=== PATIENT | male | born 1970 | race Two or more races ===

== ENCOUNTER 2025-01-01 11:49 | Emergency (ER) | payer MEDICAID, SELFPAY ==
[2025-01-01 11:51] VITALS: BMI 30.8
[2025-01-01 12:10] VITALS: BP 177/90; PULSE 74; RESP 18; TEMP 37.1; O2SAT 96; BMI 28.4
--- NOTE | 2025-01-01 12:27 | XR_ITS ---
Examination:Left hip AP, lateral, AP pelvis 3 views Technique: Hip AP lateral, AP pelvis, 3 views Exam date and time:January 01, 2025 1248 hours INDICATIONS: Low back pain 15 days radiating to the hips FINDINGS: Mild bilateral hip osteoarthritis No hip or pelvic fracture IMPRESSION: Mild bilateral hip osteoarthritis.
[2025-01-01] MEDS: KETOROLAC INJ 30 MG/ML VIAL IM (12:40)
--- NOTE | 2025-01-01 13:38 | EDNOTE_ITS ---
<Statement entered by Leanne Mcguire MD - 01/12/25 06:18> As co-signing physician, I was present and available for consult prn. I concur with the plan and care as documented by the midlevel provider. ED General RME/HPI General Chief complaint: General Adult/Misc Complain Stated complaint: L HIP PAIN THAT RADIATES TO LLE X2 WEEKS Time Seen by Provider: 01/01/25 11:58 Arrival date/time: 01/01/25 11:49 54-year-old male presents to the emergency department today from plaint of left hip pain radiating down the left leg patient report symptoms ongoing for last couple of weeks Limitations: no limitations Related Data Previous Rx's ?Medication ?Instructions ?Recorded cyclobenzaprine 10 mg tablet 10 mg PO TID PRN muscle s pasm 10 01/01/25 days #30 tab-caps meloxicam 7.5 mg tablet 7.5 mg PO QDAY 7 days #7 tab s 01/01/25 Allergies Allergy/AdvReac Type Severity Reaction Status Date / Time Penicillins Allergy Verified 01/01/25 12:50 Review of Systems Review of Systems Systems Reviewed: All systems reviewed, normal except as documented Constitutional Constitutional: Reports system reviewed and no additional complaints, except as documented, Denies fever(s) and Denies headache(s) Eyes Eyes: Reports system reviewed and no additional complaints, except as documented and Denies blurry vision ENT Ears, Nose, Mouth, and Throat: Reports system reviewed and no additional complaints, except as documented, Denies headache(s), Denies nasal congestion and Denies nasal discharge Cardiovascular Cardiovascular: Reports system reviewed and no additional complaints, except as documented, Denies chest pain and Denies dyspnea Respiratory Respiratory: Reports system reviewed and no additional complaints, except as documented, Denies chest congestion, Denies cough and Denies dyspnea Gastrointestinal Gastrointestinal: Reports system reviewed and no additional complaints, except as documented and Denies abdominal pain Musculoskeletal Musculoskeletal: Reports system reviewed and no additional complaints, except as documented, Denies abnormal gait, Reports arthralgias, Denies deformity, Denies joint swelling, Denies numbness, Reports radiating pain into limb, Reports stiffness and Denies tingling Integumentary/Breasts Skin/Breast: Reports system reviewed and no additional complaints, except as documented and Denies rash Neurologic Neurologic: Reports system reviewed and no additional complaints, except as documented, Reports as per HPI, Denies abnormal gait, Denies headache(s), Denies numbness and Denies tingling Past Medical History Social History SMOKING STATUS: Current every day smoker ED Exam General Limitations: Present no limitations General appearance: Present alert and in no apparent distress Head Head exam: Present atraumatic, normocephalic and normal inspection Eye Eye exam: Present normal appearance, PERRL and EOMI ENT ENT exam: Present normal exam, normal oropharynx and mucous membranes moist Neck Neck exam: Present normal inspection, full ROM and trachea midline Chest Chest inspection: Present normal inspection and symmetric chest wall rise Respiratory Respiratory exam: Present normal lung sounds bilaterally Cardiovascular Cardiovascular exam: Present regular rate, normal rhythm and normal heart sounds Abdominal Exam Abdominal exam: Present soft and normal bowel sounds; Absent distention, tenderness, rebound or rigidity Extremities Exam Extremities exam: Present normal inspection, full ROM, tenderness (Left hip pain) and normal capillary refill Back Exam Back exam: Present normal inspection and full ROM Neurological Exam Neurological exam: Present alert, oriented X3, CN II-XII intact, normal gait and reflexes normal; Absent motor sensory deficit Psychiatric Psychiatric exam: Present normal affect and normal mood Skin Skin exam: Present warm, dry, intact and normal color Course Quality Measures none Orders Category Date Time Status XR hip LT w pelvis 2-3V Stat Exams 01/01/25 12:27 Completed Ketorolac Inj [Toradol Inj] Med 01/01/25 12:27 Discontinued 30 mg IM X1 ONE Vital Signs Vital signs: Vital Signs Temperature 98.8 F 01/01/25 12:10 Pulse Rate 74 01/01/25 12:10 Respiratory Rate 18 01/01/25 12:10 Blood Pressure 177/90 H 01/01/25 12:10 Pulse Oximetry (%) 96 01/01/25 12:10 Oxygen Delivery Method Room Air 01/01/25 12:10 O2 saturation 96% on room air within normal limits Discharge Plan Plan Patient Disposition: HOME (Self Care) Discharge Disposition comment: Stable Prescriptions/Referrals Prescriptions/Med Rec: New cyclobenzaprine 10 mg tablet 10 mg PO TID PRN (Reason: muscle spasm) 10 Days Qty: 30 0RF meloxicam 7.5 mg tablet 7.5 mg PO QDAY 7 Days Qty: 7 0RF Referrals: No Primary/Family,Physician [Primary Care Provider] - 01/04/25 Problem List Clinical Impression: Osteoarthritis of left hip Patient/Caregiver Discharge Instructions Education Materials: ED Osteoarthritis Additional Instructions: Please follow up with your primary care doctor in the next 24-48hrs for any worsening symptoms return here immediately Print Language: Dutch Stand Alone Forms: Anneliese Saleh Info., Patient Portal Info Letter PA/YAHIR Supervising Physician PA/TRANSLATOR INTERPRETER Supervising Physician: Dr. Mcguire MDM Narrative MDM hospital course (for use when minimal MDM required): 54-year-old male presents to the emergency department today from plaint of left hip pain radiating down the left leg patient report symptoms ongoing for last couple of weeks Patient reports no saddle anesthesia no loss of bowel or bladder patient walks with steady gait Imaging obtained consistent with arthritis Patient given Toradol for pain which improved his symptoms Patient discharged home in no distress to follow-up with primary care doctor in the next 24 to 48 hours and for any worsening symptoms to return to the ER immediately Clinical Information Provided by: none Medical Records reviewed None Meds/Rx considered, not ordered describe: Given Labs/Rad/Tests considered, not ordered Describe: Obtained EKG EKG not done Labs Labs: none Imaging Imaging interpretation: Personal Interpretations Imaging Interpretation(s): Reviewed by me Medication Administration(s) Medication Administration History Discontinued Medications Ketorolac Tromethamine (Ketorolac Inj 30 Mg/Ml Vial) 30 mg IM X1 ONE Stop: 01/01/25 12:28 Last Admin: 01/01/25 12:40 Dose: 30 mg Documented By: OA Given Diagnosis Differential Diagnosis ED Complaint MDM: Hip sprain, hip strain, arthritis, sciatica
== END 2025-01-01 14:14 | disposition home or self-care (01) ==
PROVIDERS: Emergency Provider Emergency Medicine
DX: M16.12 Unilateral primary osteoarthritis, left hip (principal)
CPT/HCPCS: 73502; 96372; 99283; J1885

== ENCOUNTER 2025-02-09 17:41 | Emergency (ER) | payer MEDICAID, SELFPAY ==
[2025-02-09 18:12] VITALS: BP 163/91; PULSE 75; RESP 19; TEMP 37.4; O2SAT 95; BMI 26.0
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
== END 2025-02-09 19:55 | disposition home or self-care (01) ==
PROVIDERS: Emergency Provider Emergency Medicine
DX: S19.9XXA Unspecified injury of neck, initial encounter (principal); S09.90XA Unspecified injury of head, initial encounter; V89.2XXA Person injured in unspecified motor-vehicle accident, traffic, initial encounter
CPT/HCPCS: 70450; 72125; 87400; 87811; 99284

== ENCOUNTER 2025-08-06 07:25 | Inpatient (IN) | payer MEDICAID, SELFPAY ==
[2025-08-06] VITALS (10 sets, daily range): BP systolic 111–138; BP diastolic 84–107; PULSE 76–130; RESP 16–20; TEMP 36.6–37.2; O2SAT 93–96; BMI 30.7
--- NOTE | 2025-08-06 07:49 | EKG_ITS ---
[facility] Test Date: 2025-08-06 Pat Name: BRIGITTE MICHELE Department: Room: - Gender: Male Element Burner: : 1970 Requested By: Sandy Ramachandran Order Number: [id number] Reading MD: Sandy Ramachandran Measurements Intervals [place] Rate: 115 P: [place]: QRS: -23 QRSD: 93 T: 30 QT: 339 QTc: 471 Interpretive Statements ATRIAL FIBRILLATION WITH RAPID VENTRICULAR RESPONSE BORDERLINE LEFT AXIS DEVIATION [QRS AXIS < -20] NONSPECIFIC T-WAVE ABNORMALITY ABNORMAL RHYTHM ECG No previous ECG available for comparison /[id number]/[email or web address]/[id number].pdf
--- NOTE | 2025-08-06 08:03 | XR_ITS ---
EXAMINATION: PA chest single view TECHNIQUE: Upright PA chest single view Date and time: August 06, 2025, 0843 hours INDICATIONS: Chest pain difficulty breathing today FINDINGS: Early heart failure Mild enlargement cardiac contour. Prominent vascular congestion. Early septal edema at the lung bases with small left pleural effusion IMPRESSION: Early heart failure
--- NOTE | 2025-08-06 08:04 | PD.EDRME ---
Rapid Medical Screening Exam E Arrival date/time: 08/06/25 07:25 This is a 54-year-old male that comes into the emergency room with complaints of chest pain and shortness of breath. Patient states symptoms started last night. Patient reports the pain started mid chest and kind of radiates to his left chest. Patient denies any nausea vomiting. Patient reports that he feels like he cannot catch his breath. 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 Patient states that he does not smoke or do drugs. Patient states he also does not drink alcohol anymore. I have greeted and performed a focused initial assessment of this patient. Initial appropriate labs ordered at this time. A comprehensive ED assessment and evaluation of the patient and analysis of all test and completion of medical decision making process will be conducted by additional ED provider. Chief Complaint: Chest Pain Time Seen by Provider: 08/06/25 07:45 Vital signs: Vital Signs Temperature 98.1 F 08/06/25 08:00 Pulse Rate 108 H 08/06/25 08:00 Respiratory Rate 16 08/06/25 08:00 Blood Pressure 138/102 H 08/06/25 08:00 Pulse Oximetry (%) 95 08/06/25 08:00 Oxygen Delivery Method Room Air 08/06/25 08:00 Exam: Awake alert, breathing even and unlabored, skin warm and dry Clinical Impression: Chest pain
[2025-08-06 08:34] LABS: Basophils # (Auto) 0.1 Thou/mm3 (0.0-0.2); Basophils % (Auto) 1 % (0-2.5); Eosinophils # (Auto) 1.4 Thou/mm3 (0.0-0.5); Eosinophils % (Auto) 16 % (0-10); Hematocrit 42.2 % (41.0-53.0); Hemoglobin 13.9 g/dL (13.5-16.0); Immature Granulocytes Auto 0.02 Thou/mm3 (0.00-0.00); Lymphocytes # (Auto) 1.7 Thou/mm3 (1.0-4.8); Lymphocytes % (Auto) 19 % (10-50); Mean Corpuscular HGB Conc 32.9 g/dl (31.0-37.0); Mean Corpuscular Hemoglobin 27.7 pg (25.0-35.0); Mean Corpuscular Volume 84 fL (80-100); Monocytes # (Auto) 0.7 Thou/mm3 (0.0-0.8); Monocytes % (Auto) 8 % (0-12); Neutrophils # (Auto) 4.9 Thou/mm3 (1.8-7.7); Neutrophils % (Auto) 56 % (37-80); Nucleated Red Blood Cell # 0.00 Thou/mm3 (0.00-0.00); Nucleated Red Blood Cell % 0 /100 WBC (0); Platelet Count 192 Thou/mm3 (140-440); RDW Standard Deviation 41.1 fL (35.1-43.9); Red Blood Count 5.02 Miln/mm3 (4.50-5.90); White Blood Count 8.7 Thou/mm3 (3.8-10.6)
[2025-08-06 08:48] LABS: B-Type Natriuretic Peptide 451 pg/mL (0-100)
[2025-08-06 08:51] LABS: Alanine Aminotransferase 97 U/L (10-49); Albumin, Serum 4.1 gm/dL (3.5-5.0); Albumin/Globulin Ratio 1.6 (1.2-2.2); Alkaline Phosphatase 57 U/L (46-116); Anion Gap 10 (7-16); Aspartate Amino Transferase 52 U/L (0-34); BUN/Creatinine Ratio 16 Ratio (12-20); Bilirubin,Total 0.6 mg/dL (0.3-1.2); Blood Urea Nitrogen 19 mg/dL (9-23); Calcium 9.3 mg/dL (8.3-10.6); Calcium (Corrected) 9.3 mg/dL (8.5-10.1); Carbon Dioxide 25.7 mMol/L (20.0-31.0); Chloride 108 mMol/L (98-107); Creatinine (Component) 1.2 mg/dL (0.6-1.3); Estimated Creatinine Clearance 83.2 mL/min (>60); Globulin 2.6 gm/dL (2.3-3.5); Glucose 113 mg/dL (74-106); Osmolality,Calculated 290 (275-295); Potassium 4.4 mMol/L (3.4-5.1); Sodium 144 mMol/L (136-145); Total Protein 6.7 gm/dL (5.7-8.2); Troponin I 0.021 ng/mL (0.0-0.045); eGFR > 60 See Note
--- NOTE | 2025-08-06 10:08 | PD.EDCHEST ---
ED Chest Pain RME/HPI General Chief Complaint: Chest Pain Stated Complaint: C/P SINCE LAST NIGHT, SOB, HAS HAD COUGH Time Seen by Provider: 08/06/25 07:45 Arrival date/time: 08/06/25 07:25 RME / HPI RME / HPI narrative: 08/06/25 07:25 This is a 54-year-old male that comes into the emergency room with complaints of chest pain and shortness of breath. Patient states symptoms started last night. Patient reports the pain started mid chest and kind of radiates to his left chest. Patient denies any nausea vomiting. Patient reports that he feels like he cannot catch his breath. 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 Patient states that he does not smoke or do drugs. Patient states he also does not drink alcohol anymore. I have greeted and performed a focused initial assessment of this patient. Initial appropriate labs ordered at this time. A comprehensive ED assessment and evaluation of the patient and analysis of all test and completion of medical decision making process will be conducted by additional ED provider. DR. SALINAS MAIN ED EVALUATION 54 year old male with no known medical history presents to the ED for evaluation of shortness of breath and chest pain that began around 8:00 PM while lying in bed. Describes the chest pain as an aching sensation, located in the substernal, left chest, and upper epigastric areas, rating 9/10 in severity. Pain aggravated by deep breaths. Associated with difficulty sleeping due to a choking sensation, palpitations, nausea, cough, and sore throat. Denies any prior episodes of similar symptoms and notes no other associated complaints. He states that he drank a Picot at 5:00 AM today, but this did not alleviate his symptoms. Social history: Drank 1-2 beers 3 days ago and states he drinks once in a while . Exam: Awake alert, breathing even and unlabored, skin warm and dry Impression: Chest pain Related Data Allergies Allergy/AdvReac Type Severity Reaction Status Date / Time Penicillins Allergy Verified 08/06/25 07:26 Review of Systems Review of Systems Systems Reviewed: All systems reviewed, normal except as documented Past Medical History Past Medical History CARDIAC: Negative Congestive Heart Failure RESPIRATORY: Negative Chronic Obstructive Pulmonary Disease (COPD) GENITOURINARY: Negative Renal Disease ENDOCRINE: Negative Diabetes Mellitus Type 1 or Diabetes Mellitus Type 2 Social History SMOKING STATUS: Never smoker ED Exam Narrative Physical exam: Constitutional: Awake, alert, nontoxic, no acute distress HEENT: Normocephalic, atraumatic, extraocular movements intact. Neck: Supple CV: Tachycardic, irregularly irregular rhythm, no murmurs/rubs/gallops Chest: Tenderness to the anterior chest wall Lungs: Clear to auscultation BL, no respiratory distress. Abd: Soft, pain to the upper abdomen worse to the epigastric region, ND, no HSM noted to palpation Extremities: No deformities, no edema noted Neuro: AAOx3, CN 2-12 GIBL, no acute neuro deficit noted. Skin: Warm, dry, intact Course Course Course Narrative: 1035h: I spoke with hospitalist team for admission. Discussed patients PMHx, HPI, ED course, exam findings, labs, and radiology results. Quality Measures none Orders Category Date Time Status COVID-19 Screening Questionnaire NOW Care 08/06/25 10:35 Active Decision to Admit X1 Care 08/06/25 10:35 Completed EKG (ED ONLY) *Do not use* NOW Care 08/06/25 07:49 Completed EKG (ED Only) Stat Exams 08/06/25 07:49 Draft XR chest 1V Stat Exams 08/06/25 08:03 Completed BNP [B-Type Natriuretic Peptide] Stat Lab 08/06/25 08:14 Completed CBC Stat Lab 08/06/25 08:14 Completed Comprehensive Metabolic Panel Stat Lab 08/06/25 08:14 Completed Drug Screen,Urine Stat Lab 08/06/25 10:24 Completed Troponin I Stat Lab 08/06/25 08:14 Completed Urinalysis, C/S if Indicated Stat Lab 08/06/25 10:24 Completed Diltiazem Inj [Cardizem Inj] Med 08/06/25 10:18 Discontinued 20 mg IV X1 ONE Furosemide Inj [Lasix Inj] Med 08/06/25 10:29 Discontinued 40 mg IVP X1 ONE Ringers Lactated 1000 ml [Lactated Ringers] 1,000 ml Med 08/06/25 10:18 Discontinued IV 999 mls/hr Vital Signs Vital signs: Vital Signs Temperature 98.1 F 08/06/25 08:00 Pulse Rate 108 H 08/06/25 08:00 Respiratory Rate 16 08/06/25 08:00 Blood Pressure 138/102 H 08/06/25 08:00 Pulse Oximetry (%) 95 08/06/25 08:00 Oxygen Delivery Method Room Air 08/06/25 08:00 Pulse ox is 95% on room air which is adequate. Chest Pain MDM Narrative MDM Narrative:: Jeanne Dobbins am scribing for and in the presence of Dr. Salinas. Patient data External records reviewed:: [facility] previous records Clinical information provided by:: patient Social determinants that could affect healthcare access:: alcohol use Patient has the following chronic illnesses:: No known medical hx How is presenting disease/condition affected by chronic disease/condition?: no chronic disease Evaluation data The following diagnostics were reviewed and interpreted by me:: lab results, radiology exam(s) and EKG tracing(s) (EKG @ 0755h, interpreted by me, atrial fibrillation with RVR, rate 115, no STEMI. ) Lab and/or radiology exams considered but not ordered:: None Interpretation Summary: Ordering Physician: Sandy Ramachandran NP Date of Service: 08/06/25 Procedure(s): XR chest 1V Accession Number(s): [id number] cc: Faizan Sams MD; Sandy Ramachandran NP~ EXAMINATION: PA chest single view TECHNIQUE: Upright PA chest single view Date and time: August 06, 2025, 0843 hours INDICATIONS: Chest pain difficulty breathing today FINDINGS: Early heart failure Mild enlargement cardiac contour. Prominent vascular congestion. Early septal edema at the lung bases with small left pleural effusion IMPRESSION: Early heart failure Dictated By: Faizan Sams MD Signed By: <Electronically signed by Faizan Sams MD in OV> 08/06/25 0924 Medications / Prescriptions Medications or Prescriptions considered but not ordered:: None Medication administrations:: Medication Administration History Discontinued Medications Diltiazem HCl (Diltiazem Inj 5 Mg/Ml Vial 5 Ml) 20 mg IV X1 ONE Stop: 08/06/25 10:19 Last Admin: 08/06/25 10:44 Dose: 20 mg Documented By: TM Furosemide (Furosemide Inj 10 Mg/Ml 4ml Vial) 40 mg IVP X1 ONE Stop: 08/06/25 10:30 Last Admin: 08/06/25 10:50 Dose: 40 mg Documented By: TM Lactated Ringer's (Lactated Ringers) 1,000 mls @ 999 mls/hr IV .Q1H1M ONE Stop: 08/06/25 11:18 Last Infusion: 08/06/25 11:48 Dose: Infused Documented By: Admin: 08/06/25 10:47 Dose: 999 mls/hr Documented By: TM Magnesium Sulfate (Magnesium Sulfate Ivpb) 2 gm in 50 mls @ 25 mls/hr IV X1 ONE Stop: 08/06/25 14:50 Last Infusion: 08/06/25 15:13 Dose: Infused Documented By: Admin: 08/06/25 13:13 Dose: 25 mls/hr Documented By: TM Metoprolol Succinate (Metoprolol Succinate Xl 25 Mg Tabcr) 50 mg PO X1 ONE Stop: 08/06/25 13:23 Last Admin: 08/06/25 13:26 Dose: 50 mg Documented By: TM Pantoprazole Sodium (Pantoprazole Inj 40 Mg Vial) 40 mg IVP X1 ONE Stop: 08/06/25 13:06 Last Admin: 08/06/25 13:13 Dose: 40 mg Documented By: TM See above Consultations Consultation(s) initiated? (list below): Yes Consultation #1 (Physician, Specialty, Details): See above Diagnosis Most likely diagnosis given after review of the tests above:: Atrial fibrillation with RVR Admission Indicated Admission indicated?: indicated Admission Request Was there a request for admission?: Yes Admission Attestation Admission request attestation: Discussed case with [] from Hospitalist service regarding admission. Discussed patients ED course, exam findings, labs, and radiology results. The Hospitalist [agrees,declines] to accept the patient for admission. Disposition Plan Disposition Plan: Admit Discharge Plan Plan Patient Disposition: Admit Acute Care w/in Hospital Problem List Clinical Impression: Atrial fibrillation with RVR
[2025-08-06 10:35] LABS: Collection Type, Urine Voided; Squamous Epithelial Cell,Urine 0 /hpf (0-5)
[2025-08-06] MEDS: DILTIAZEM INJ 5 MG/ML VIAL 5 ML 20 MG IV (10:44)
[2025-08-06] MEDS: RINGERS LACTATED 1000 ML 1,000 ML 999 ML IV (10:47)
[2025-08-06] MEDS: FUROSEMIDE INJ 10 MG/ML 4ML VIAL 40 MG IVP ×2 (10:50→19:15)
[2025-08-06 10:51] LABS: Amphetamine/Methamp Scrn,U Negative (Negative); Barbiturate Screen,Urine Negative (Negative); Benzodiazepines Screen,Urine Negative (Negative); Benzoylecgonine Screen, Ur Negative (Negative); Fentanyl Screen,Urine Negative (Negative); Opiate Screen,Urine Negative (Negative); THC Screen,Urine Negative (Negative)
[2025-08-06 10:55] LABS: Bilirubin,Urine Negative (Negative); Blood,Urine Negative (Negative); Clarity,Urine Clear (Clear/Hazy); Color,Urine Yellow (Lt Yel-Yel); Culture Indicated,Urine Not Indicated; Glucose, Urine Negative (Negative); Ketones,Urine Negative (Negative); Leukocyte Esterase,Urine Negative (Negative); Nitrite,Urine Negative (Negative); PH,Urine 6.5 (5.0-7.0); Protein,Urine 1+ (Neg - Trace); RBC,Urine 6 /hpf (0-3); Specific Gravity,Urine 1.029 (1.001-1.035); Urobilinogen,Urine Negative mg/dL (0.0-1.0); WBC,Urine 1 /hpf (0-5)
--- NOTE | 2025-08-06 12:26 | ESCONSULT_ITS ---
HPI Data of Consult Requesting Physician: Kurtis Plaza MD Admitting Provider: Kurtis Plaza MD Attending Provider: Kurtis Plaza MD Primary Care Provider: Shaan Lloyd MD Consult Narrative History of present illness: Mr. Deleon is a 54-year-old male with past medical history of osteoarthritis and remote history of methamphetamine use who presented to [facility] [place] emergency department with a chief complaint of chest pain and shortness of breath. Patient reported that his symptoms started last night, retrosternal chest pain 9/10 radiating to the left and in the epigastric region associated with nausea, denies any vomiting/diaphoresis. Patient reported difficulty sleeping due to the chest pain also endorsed palpitations and difficulty breathing describes it as a choking sensation. Patient has not had any similar episodes in the past. Patient denies any past medical history of hypertension hyperlipidemia, Endorses history of methamphetamine use in the past, history of smoking and alcohol use around 2-3 beers once in a while, Patient is overweight, BMI 30.7 and has family history of heart disease reports in father and brother. Denies any history of hypertension, hyperlipidemia, diabetes mellitus, thyroid disorder. ED course: On presentation to ED blood pressure 138/102, heart rate 108, respirate rate 16, temp 98.1, O2 sat 95 on room air on presentation. Labs on presentation show WBC 8.7, hemoglobin 13.9, platelet count 192. Eosinophilia 16% noted. Coags INR 1.1, APTT 25.8, PT 11.5. CMP shows sodium 144, potassium 4.4, chloride 108, anion gap 10, BUN 19, creatinine 1.2, GFR greater than 60, A1c 5.9, magnesium 1.8, calcium 9.3, AST 52, ALT 97, bilirubin 0.6, troponin negative at 0.021 and repeat troponin negative at 0.20, BNP 451, albumin 4.1, triglyceride 89, cholesterol 173, LDL 116, HDL 39, TSH 1.02, free T4 1.33. Urinalysis shows 6 RBC, protein 1+ urine toxicology screen negative. EKG obtained in ER shows atrial fibrillation with rapid ventricular response rate 150, chest x-ray shows early heart failure with mild vascular congestion, septal edema with small left pleural effusion. Patient was given diltiazem 20 mg IV x 1, 1 L LR bolus and Lasix 40 mg x 1 in ED. PMH: Positive for osteoarthritis, methamphetamine use PSHx: Denies Allergies: Penicillin Social history: -Smoking: Positive smoking in the past, 20 pack years -Alcohol Use: Occasional alcohol use, 2-3 beer once in a while -Illicit Drug Use: History of methamphetamine use in the past -Occupation: Works at [employer] -Martial Status: Lives at [place] with Family History: Positive family history for heart disease in father and brother cc:: cc: Kurtis Plaza MD Review of Systems Review of Systems Systems Reviewed: All systems reviewed, normal except as documented Exam Vital Signs Temp Pulse Resp BP Pulse Ox O2 Del Method 97.9 F 83 20 111/84 96 Room Air 08/06/25 10:19 08/06/25 10:50 08/06/25 10:19 08/06/25 10:50 08/06/25 10:19 08/06/25 10:19 Narrative Exam Physical Exam General: Awake and in no acute distress. Conversational and non-toxic appearing. HEENT: Normocephalic, atraumatic, mucous membranes moist. Heart: Irregularly irregular rhythm rate 130s, no murmurs. Lungs: Some bibasilar crackles Abdomen: Soft, nondistended, nontender, positive bowel sounds. ?No guarding or rebound tenderness. Neurologic: Alert and oriented x3, no gross neurological deficit, and patient able to move all 4 extremities. Extremities: Trace bilateral lower extremity edema Skin: No rash or ecchymoses. Results Labs 08/08/25 05:15 08/08/25 05:15 Labs: Short CBC 08/06/25 Range/Units 08:14 WBC 8.7 (3.8-10.6) Thou/mm3 Hgb 13.9 (13.5-16.0) g/dL Hct 42.2 (41.0-53.0) % Plt Count 192 (140-440) Thou/mm3 BMP 08/06/25 08:14 Sodium 144 Potassium 4.4 Chloride 108 H Carbon Dioxide 25.7 BUN 19 Creatinine 1.2 Glucose 113 H Calcium 9.3 Cardiac Enzymes 08/06/25 Range/Units 08:14 Troponin I 0.021 (0.0-0.045) ng/mL Liver Function 08/06/25 Range/Units 08:14 Total Bilirubin 0.6 (0.3-1.2) mg/dL AST 52 H (0-34) U/L ALT 97 H (10-49) U/L Alkaline Phosphatase 57 (46-116) U/L Albumin 4.1 (3.5-5.0) gm/dL Urine 08/06/25 Range/Units 10:24 Urine Color Yellow (Lt Yel-Yel) Urine Clarity Clear (Clear/Hazy) Urine pH 6.5 (5.0-7.0) Ur Specific [place] 1.029 (1.001-1.035) Urine Protein 1+ A (Neg - Trace) Urine Glucose (UA) Negative (Negative) Quality Measures Quality Measures none Medications Home Medications and Allergies Home Medications ?Medication ?Instructions ?Recorded ?Confirmed ?Type No Known Home Medications 08/06/2507/19 History Allergies Allergy/AdvReac Type Severity Reaction Status Date / Time Penicillins Allergy Verified 08/06/25 07:26 Visit Medications Discontinued Medications Diltiazem HCl (Diltiazem Inj 5 Mg/Ml Vial 5 Ml) 20 mg IV X1 ONE Stop: 08/06/25 10:19 Last Admin: 08/06/25 10:44 Dose: 20 mg Furosemide (Furosemide Inj 10 Mg/Ml 4ml Vial) 40 mg IVP X1 ONE Stop: 08/06/25 10:30 Last Admin: 08/06/25 10:50 Dose: 40 mg Lactated Ringer's (Lactated Ringers) 1,000 mls @ 999 mls/hr IV .Q1H1M ONE Stop: 08/06/25 11:18 Last Admin: 08/06/25 10:47 Dose: 999 mls/hr Assessment & Plan Plan Assessment and plan: Summary: Mr. Deleon is a 54-year-old male with past medical history of osteoarthritis and remote history of methamphetamine use who presented to [facility] [place] emergency department with a chief complaint of chest pain and shortness of breath. Patient admitted for new onset atrial fibrillation RVR, monitoring for cardiac chest pain and new onset heart failure. #New onset atrial fibrillation with rapid ventricular response Patient presented with new onset chest pain which started overnight, EKG on presentation shows A-fib RVR, rate 150. Patient also endorsed palpitations and some shortness of breath. Patient was given diltiazem 20 mg IV x 1, given metoprolol succinate 50 mg p.o. x 1. [id number] score 2 points, anticoagulation recommended HAS-BLED score 1 point, risk of 1.02 bleeds per 100 patient years Recommendations: - Continue metoprolol succinate 50 mg daily - Start heparin drip, transition to Eliquis when no contraindications - Keep potassium greater than 4 and magnesium greater than 2 at all times - Continue telemetry monitoring #Acute decompensated heart failure #New onset right and left sided systolic and diastolic heart failure with reduced ejection fraction, EF 15 to 20% #Dilated cardiomyopathy #Moderate vascular congestion with small left pleural effusion Patient complaining of chest pain, shortness of breath, difficulty breathing. Trace bilateral lower extremity edema, minimal bibasilar crackles, chest x-ray shows moderate vascular congestion, small left-sided pleural effusion. Patient denies any history of heart failure. History of on and off alcohol use, reports drinking a lot in the past, continues to drink 2 3 beers occasionally, remote history of methamphetamine use. Drug screen negative for methamphetamine. BNP on presentation 451. Echocardiogram 08/06/2025 shows: 1. Dilated Cardiomyopathy. 2. Left ventricle size is mildly enlarged and systolic function is severely reduced. Estimated ejection fraction is 15-20%. There is indeterminate diastolic function. There is concentric remodeling noted. 3. Right ventricle chamber size is mildly enlarged and systolic function is mild to moderately reduced. Estimated RVSP is 33 mmHg. Mild pulmonary HTN. 4. There is mild aortic valve sclerosis. Mild MR,TR,PI and trace PI. 5. The left atrium is moderately enlarged . LA volume of 89ml. The right atrium is mildly enlarged. 6. Normal IVC with estimated RA pressure 3 mmHg. Recommendations: - Diuresis with Lasix 40 mg IV twice daily - Strict intake and output, daily weight, low-sodium diet, fluid restriction 1500 cc - Continue metoprolol succinate 50 mg daily, will need to introduce GDMT post diuresis, will consider starting patient on STEVE/ARB/ARNI and spironolactone as blood pressure tolerates. - Patient will need to follow-up outpatient closely for further workup. - Advised patient to refrain from alcohol and methamphetamine use - Will obtain iron panel, will consider IV iron replacement if low reserve #Cardiac chest pain Patient reports history of chest pain, 9/10 radiating to the left side in the epigastric region associated with nausea, at bedside currently complains of 3/10 chest pain. Patient reported that his chest pain woke him up from sleep and he was unable to go back to sleep and was associated with palpitations and difficulty breathing. EKG on presentation shows A-fib RVR, no acute ST-T changes, T wave inversion noted in V5 V6, flattening of T waves noted lead V1?V4. Troponin on presentation 0.021, repeat troponin negative less than 0.020 Hemoglobin A1c 5.9, TSH 1.02, free T4 1.33, cholesterol 173, LDL 116, HDL 39, triglyceride 89 CAD risk factors: Dyslipidemia LDL 116, HDL 39; alcohol use and history of methamphetamine use; BMI 30.7; history of smoking, 20 pack years; family history of heart disease and father and brother Recommendations: -Was given aspirin loading dose, continue aspirin 81 mg daily -Patient is on heparin drip due to elevated [id number] score of 2, continue -Will monitor for chest pain - Continue atorvastatin 40 mg at bedtime #Dyslipidemia cholesterol 173, LDL 116, HDL 39, triglyceride 89 - Continue atorvastatin 40 mg at bedtime #Transaminitis #Osteoarthritis Management per primary hospitalist team Thank you for the consult and allowing to participate in the care of the patient. Cardiology will continue to follow. Case discussed with Attending Physician Dr. Sudhir Zuniga MD Internal Medicine PGY-2 Disclaimer: This note was dictated by speech recognition. Minor errors in cena may be present due to voice recognition software. Attending Provider Attestation/Addendum I have personally seen and examined the patient separately on the above date of service and discussed the plan of care with the resident. I reviewed the resident Dr. Margarita Zuniga consultation progress note and agree with the resident findings and plan in the note above and have also edited the documentation to reflect my findings and plan. Sudhir Hollingsworth M.D. Interventional Cardiology
--- NOTE | 2025-08-06 12:50 | ECHO_ITS ---
Patient Info Name: Joey Deleon Age: 54 years : 1970 Gender: Male Ht: 178 cm Wt: 97 kg BSA: 2.22 m2 BP: 131 / 105 mmHg HR: 86 bpm Exam Date: 08/06/2025 2:56 PM Admit Date: 08/06/2025 Site: [facility] Room Number: ER Patient Status: I Exam Type: CA echo doppler complete [place]ountain Supervisor: Jami Giraldo Ordering Physician: Margarita Zuniga Study Info Indications Atrail Fib., Chest Pain - Primary Location: [id number] Left Ventricular Outflow Tract Name Value Normal LVOT 2D LVOT Diameter 2.6 cm LVOT Doppler LVOT Peak Velocity 63 cm/s LVOT Mean Gradient 1 mmHg LVOT VTI 11 cm LVOT VTI/AV VTI Ratio 0.5 LVOT Stroke Volume 60 ml Pulmonic Valve Name Value Normal PV Regurgitation Doppler KS Peak End Diastolic Velocity 149 cm/s Mitral Valve Name Value Normal MV Doppler MV Mean Gradient 3 mmHg MV PHT 29 ms MV Area (PHT) 7.7 cm2 4.0-5.0 MV Area (Cont Eq VTI) 2.3 cm2 MV Annular TDI MV Septal e' Velocity 7.3 cm/s MV Lateral e' Velocity 9.2 cm/s MV e' Average 8.27 cm/s Tricuspid Valve Name Value Normal TV Regurgitation Doppler TR Peak Velocity 274 cm/s Estimated PAP/RSVP RA Pressure 3 mmHg <=5 PA Systolic Pressure 33 mmHg <36 RV Systolic Pressure 33 mmHg <36 TV Annular TDI TV Lateral Ernestina s' Velocity 9.4 cm/s >=9.5 Aortic Valve Name Value Normal AV 2D/MM AV Cusp Sep (MM) 1.8 cm AV Doppler AV Peak Velocity 120 cm/s AV Mean Gradient 3 mmHg AV VTI 22 cm AV Area (Cont Eq VTI) 2.7 cm2 >=3.0 AV Area (Cont Eq Amanuel) 2.8 cm2 AV DI (Amanuel) 0.52 AV Regurgitation 2D LVOT Area 5.3 cm2 Ventricles Name Value Normal LV Dimensions 2D/MM IVS Diastolic Thickness (2D) 1.1 cm 0.6-1.0 LVID Diastole (2D) 6.6 cm 4.2-5.8 LVIW Diastolic Thickness (2D) 1.5 cm 0.6-1.0 LVID Systole (2D) 5.7 cm 2.5-4.0 LVOT Diameter 2.6 cm LV Mass (2D Cubed) 409.27 g 88.00-224.00 LV Mass Index (2D Cubed) 185 g/m2 49-115 Relative Wall Thickness (2D) 0.45 <=0.42 IVS/LVIW Diastolic Thickness (2D) 0.73 0.00-1.50 LV Fractional Shortening/Ejection Fraction 2D/MM LV Fractional Shortening (2D) 14 % 25-43 LV EF (2D Teichholz) 28 % RV Dimensions 2D/MM TV Lateral Ernestina s' Velocity 9.4 cm/s >=9.5 Atria Name Value Normal LA Dimensions LA Volume (4C A-L) 79 ml LA Volume (BP A-L) 89 ml Summary 1. Dilated Cardiomyopathy. 2. Left ventricle size is mildly enlarged and systolic function is severely reduced. Estimated ejection fraction is 15-20%. There is indeterminate diastolic function. There is concentric remodeling noted. 3. Right ventricle chamber size is mildly enlarged and systolic function is mild to moderately reduced. Estimated RVSP is 33 mmHg. Mild pulmonary HTN. 4. There is mild aortic valve sclerosis. Mild MR,TR,PI and trace PI. 5. The left atrium is moderately enlarged . LA volume of 89ml. The right atrium is mildly enlarged. 6. Normal IVC with estimated RA pressure 3 mmHg. Report Signatures Finalized by Sudhir Hollingsworth on 08/06/2025 06:42 PM
[2025-08-06] MEDS: Magnesium Sulfate 2 GM Ivpb 2 GM/50 ML BAG IV ×2 (13:13→19:15)
[2025-08-06] MEDS: METOPROLOL SUCCINATE XL 25 MG TABCR 50 MG PO (13:26)
--- NOTE | 2025-08-06 13:32 | ESHP_ITS ---
<Statement entered by Chava Perkins MD - 08/07/25 16:20> Patient was seen and examined at bedside. Agree on the assessnent and plan on this note. - Patient's plan and care discussed with my attending, Dr. Nadya Perkins MD Internal Medicine PGY-3 Documentation for date of: 08/06/25 HPI History of Present Illness Chief complaint: Chest pain & SOB History of present illness: Patient is a 54-year-old male with no past medical history presented to the ED [facility] with chief complaint of chest pain and shortness of breath. Says pain was 9/10 and started last night affecting his mid chest at rest and radiates to his epigastrium and left chest. States was not affected by respirations. Nothing made it better or worse at the time. States has never happened to him before. Patient states that he had some nausea last night, but has felt better since getting medication in the ED. Patient says his shortness of breath has resolved as well. Patient currently endorses mild 3/10 chest discomfort; denies headache, chills, fever, sick contacts, palpitations, dysuria, constipation, diarrhea. Past Medical History: none Family History: Brother and father had NE's Surgical History: None Social History: Endorsed occasional alcohol use, use to drink more 20+ years ago. Endorses history of smoking a lot time ago as well, does not currently smoke; endorsed hx of meth use. Lives with family locally. Current Medications: none Allergies: No known drug allergies ED Course: -Initial vitals were BP 138/102, heart rate 108, respiratory rate 16, temperature 98.1, O2 saturation 95 on room air -Labs significant for chloride 108, glucose 113, AST 52, ALT 97, BNP 451; UA 1+ protein, 6 rbc -Imaging included EKG that shows A-fib with RVR, QTc 471 chest x-ray showing bilateral echo taken pending read -In the ED, patient was given diltiazem 20 mg x 1, LR 1 L x 1, Lasix 40 mg x 1, magnesium sulfate 2 g x 1, Protonix 40 mg x 1, metoprolol succinate 50 mg x 1 -Patient was admitted for Review of Systems Review of systems otherwise negative except what is mentioned above. Exam Vital Signs Temp Pulse Resp BP Pulse Ox O2 Del Method 97.9 F 92 20 134/107 H 96 Room Air 08/06/25 10:19 08/06/25 13:26 08/06/25 10:19 08/06/25 13:26 08/06/25 10:19 08/06/25 10:19 Narrative Exam General: No acute distress; A&Ox3 Skin: Warm, dry, intact, no obvious rash. HENT: Teeth missing (1 year); NCAT, EOMI/PERRL, not icteric. External ears normal. No rhinorrhea. Moist mucous membranes Cardiovascular: Regular rate and rhythm, no murmur, +S1/S2. Respiratory: Lungs CTAB GI: Soft, nontender, non-distended. No guarding or rebound tenderness. : No suprapubic tenderness. No flank tenderness bilaterally. Extremities: no edema, no cyanosis, no clubbing. Extremity pulses present Neuro: Grossly nonfocal. Moving all 4 extremities. CN not formally tested but appear grossly intact. Psychiatric: Cooperative, appropriate affect. Results: Labs 08/07/25 04:28 08/07/25 04:28 Labs: Short CBC 08/06/25 Range/Units 08:14 WBC 8.7 (3.8-10.6) Thou/mm3 Hgb 13.9 (13.5-16.0) g/dL Hct 42.2 (41.0-53.0) % Plt Count 192 (140-440) Thou/mm3 BMP 08/06/25 08:14 Sodium 144 Potassium 4.4 Chloride 108 H Carbon Dioxide 25.7 BUN 19 Creatinine 1.2 Glucose 113 H Calcium 9.3 Cardiac Enzymes 08/06/25 Range/Units 08:14 Troponin I 0.021 (0.0-0.045) ng/mL Liver Function 08/06/25 Range/Units 08:14 Total Bilirubin 0.6 (0.3-1.2) mg/dL AST 52 H (0-34) U/L ALT 97 H (10-49) U/L Alkaline Phosphatase 57 (46-116) U/L Albumin 4.1 (3.5-5.0) gm/dL Urine 08/06/25 Range/Units 10:24 Urine Color Yellow (Lt Yel-Yel) Urine Clarity Clear (Clear/Hazy) Urine pH 6.5 (5.0-7.0) Ur Specific [place] 1.029 (1.001-1.035) Urine Protein 1+ A (Neg - Trace) Urine Glucose (UA) Negative (Negative) Quality Measures Quality Measures VTE prophylaxis Medications Home Medications and Allergies Home Medications ?Medication ?Instructions ?Recorded ?Confirmed ?Type No Known Home Medications 08/06/2507/19 History Allergies Allergy/AdvReac Type Severity Reaction Status Date / Time Penicillins Allergy Verified 08/06/25 07:26 Visit Medications Magnesium Sulfate (Magnesium Sulfate Ivpb) 2 gm in 50 mls @ 25 mls/hr IV X1 ONE Stop: 08/06/25 14:50 Last Admin: 08/06/25 13:13 Dose: 25 mls/hr Discontinued Medications Diltiazem HCl (Diltiazem Inj 5 Mg/Ml Vial 5 Ml) 20 mg IV X1 ONE Stop: 08/06/25 10:19 Last Admin: 08/06/25 10:44 Dose: 20 mg Furosemide (Furosemide Inj 10 Mg/Ml 4ml Vial) 40 mg IVP X1 ONE Stop: 08/06/25 10:30 Last Admin: 08/06/25 10:50 Dose: 40 mg Lactated Ringer's (Lactated Ringers) 1,000 mls @ 999 mls/hr IV .Q1H1M ONE Stop: 08/06/25 11:18 Last Infusion: 08/06/25 11:48 Dose: Infused Metoprolol Succinate (Metoprolol Succinate Xl 25 Mg Tabcr) 50 mg PO X1 ONE Stop: 08/06/25 13:23 Last Admin: 08/06/25 13:26 Dose: 50 mg Pantoprazole Sodium (Pantoprazole Inj 40 Mg Vial) 40 mg IVP X1 ONE Stop: 08/06/25 13:06 Last Admin: 08/06/25 13:13 Dose: 40 mg Assessment & Plan Plan Patient is a 54-year-old male with no past medical history presented to the ED [facility] with chief complaint of chest pain and shortness of breath; admitted for new onset afib. #ACS r/o #Possible unstable angina #BNP elevation #dyspnea, RESOLVED Patient had central chest pain at rest radiating to epigastrium and L-side chest Patient given diltiazem 20 mg x 1, LR 1 L x 1, Lasix 40 mg x 1, magnesium sulfate 2 g x 1, Protonix 40 mg x 1, metoprolol succinate 50 mg x 1 in ED Trops negative; UTOX negative; EKG showed AFIB, -Ordered aspirin 325 mg po x1; ordered aspirin 81 mg po qd -ordered heparin drip -scheduled metoprolol succinate 50 mg po qd -Cardiology consulted, appreciate recommendations -Echo taken, pending read #New onset afib EKG that shows A-fib with RVR, QTc 471 chadsvasc score of 0 No home meds -ordered heparin drip, metoprolol succinate 50 mg po qd #Aminotransferase elevations Differentials are fatty liver disease (alcohol use when younger), viral hepatitis vs drug induced with chronic meth use AST 52, ALT 97 on admission Patient does not endorse abdominal pain currently -hep panel ordered -will trend ast/alt levels Hospital Management: Disposition: Tele Diet: regular diet GI Prophylaxis: none Bowel Prophylaxis: none DVT Prophylaxis: heparin gtt CODE STATUS: full code Patient plan of care was discussed with the attending physician, Dr. Plaza & senior resident Dr. Gregorio Metcalf MD PGY-1 Attending Provider Attestation/Addendum I have examined the patient, reviewed labs and imaging findings, discussed the case with the resident(s), and reviewed entered orders. I agree with the plan of care as outlined in this note, with these additional summaries/recommendations: After examination of the patient and review of the clinical data, I feel that this patient needs admission to the hospital for further treatment and evaluation. Dr. Mela MD
[2025-08-06 13:44] LABS: Glucose Estimated Average 123 mg/dL (80-131); Hemoglobin A1C 5.9 % Hgb (4.8-6.0)
[2025-08-06 13:59] LABS: Cardiac Risk Estimate 4.4 RATIO (4.0-6.7); Cholesterol 173 mg/dL (132-200); Free T4 (Free Thyroxine) 1.33 ng/dL (0.89-1.76); HDL Cholesterol 39 mg/dL (40-60); LDL Cholesterol,Calculated 116 mg/dL (0-130); Magnesium 1.8 mg/dL (1.6-2.6); Thyroid Stimulating Hormone 1.02 uIU/mL (0.55-4.78); Triglycerides 89 mg/dL (30-150); Troponin I < 0.020 ng/mL (0.0-0.045)
[2025-08-06 18:50] LABS: INR 1.1 (0.9-1.3); Partial Thromboplastin Time 25.8 Seconds (22.0-36.0); Prothrombin Time 11.5 Seconds (9.0-12.2)
[2025-08-06 19:44] LABS: Hepatitis A Antibody IgM Non Reactive (Non React); Hepatitis B Core Antibody IgM Non Reactive (Non React); Hepatitis B Surface Antigen Non Reactive (Non React); Hepatitis C Antibody Non Reactive (Non React)
[2025-08-06] MEDS: Heparin/D5w 25K 250 ML Ivpb 25,000 UNIT/250 ML BAG 10.678 UNIT IV (19:49)
[2025-08-06] MEDS: HEPARIN SOD INJ 5000 UNIT/ML VIAL 4000 UNIT IV (19:49)
--- NOTE | 2025-08-06 20:02 | PC.NURSE ---
heparin drip started per protocol
[2025-08-06] MEDS: ATORVASTATIN CALCIUM 20 MG TABLET 40 MG PO (21:46)
[2025-08-07] VITALS (11 sets, daily range): BP systolic 99–124; BP diastolic 61–94; PULSE 79–130; RESP 16–20; TEMP 36.1–36.5; O2SAT 93–98
[2025-08-07 03:04] LABS: Partial Thromboplastin Time 42.0 Seconds (22.0-36.0)
[2025-08-07] MEDS: HEPARIN SOD INJ 5000 UNIT/ML VIAL 2000 UNIT IVP (03:35)
[2025-08-07] MEDS: FUROSEMIDE INJ 10 MG/ML 4ML VIAL 40 MG IVP ×2 (05:33→17:24)
[2025-08-07 06:11] LABS: Basophils # (Auto) 0.1 Thou/mm3 (0.0-0.2); Basophils % (Auto) 1 % (0-2.5); Eosinophils # (Auto) 1.7 Thou/mm3 (0.0-0.5); Eosinophils % (Auto) 21 % (0-10); Hematocrit 40.6 % (41.0-53.0); Hemoglobin 13.2 g/dL (13.5-16.0); Immature Granulocytes Auto 0.01 Thou/mm3 (0.00-0.00); Lymphocytes # (Auto) 2.2 Thou/mm3 (1.0-4.8); Lymphocytes % (Auto) 26 % (10-50); Mean Corpuscular HGB Conc 32.5 g/dl (31.0-37.0); Mean Corpuscular Hemoglobin 27.6 pg (25.0-35.0); Mean Corpuscular Volume 85 fL (80-100); Monocytes # (Auto) 0.6 Thou/mm3 (0.0-0.8); Monocytes % (Auto) 8 % (0-12); Neutrophils # (Auto) 3.7 Thou/mm3 (1.8-7.7); Neutrophils % (Auto) 44 % (37-80); Nucleated Red Blood Cell # 0.00 Thou/mm3 (0.00-0.00); Nucleated Red Blood Cell % 0 /100 WBC (0); Platelet Count 193 Thou/mm3 (140-440); RDW Standard Deviation 40.7 fL (35.1-43.9); Red Blood Count 4.79 Miln/mm3 (4.50-5.90); White Blood Count 8.2 Thou/mm3 (3.8-10.6)
[2025-08-07 06:27] LABS: Alanine Aminotransferase 81 U/L (10-49); Albumin, Serum 3.9 gm/dL (3.5-5.0); Albumin/Globulin Ratio 1.9 (1.2-2.2); Alkaline Phosphatase 52 U/L (46-116); Anion Gap 12 (7-16); Aspartate Amino Transferase 45 U/L (0-34); BUN/Creatinine Ratio 15 Ratio (12-20); Bilirubin,Total 0.4 mg/dL (0.3-1.2); Blood Urea Nitrogen 16 mg/dL (9-23); Calcium 8.6 mg/dL (8.3-10.6); Calcium (Corrected) 8.7 mg/dL (8.5-10.1); Carbon Dioxide 26.9 mMol/L (20.0-31.0); Chloride 107 mMol/L (98-107); Creatinine (Component) 1.1 mg/dL (0.6-1.3); Estimated Creatinine Clearance 89.7 mL/min (>60); Globulin 2.1 gm/dL (2.3-3.5); Glucose 109 mg/dL (74-106); Magnesium 2.2 mg/dL (1.6-2.6); Osmolality,Calculated 292 (275-295); Phosphorous 3.9 mg/dL (2.4-5.1); Potassium 3.8 mMol/L (3.4-5.1); Sodium 146 mMol/L (136-145); Total Protein 6.0 gm/dL (5.7-8.2); eGFR > 60 See Note
[2025-08-07] MEDS: METOPROLOL SUCCINATE XL 25 MG TABCR 50 MG PO (08:18)
[2025-08-07] MEDS: ASPIRIN EC 81 MG TABEC PO (08:19)
[2025-08-07 09:58] LABS: Ferritin 182 ng/mL (10.5-307.3); Iron 34 mcg/dL (65-175); Percent Iron Saturation 11 % (20-55); Total Iron Binding Capacity 293 mcg/dL (250-425); Unsaturated Iron Binding 259 (225-295)
[2025-08-07 11:07] LABS: Partial Thromboplastin Time 62.6 Seconds (22.0-36.0)
--- NOTE | 2025-08-07 12:48 | ESPR_ITS ---
Documentation for date of: 08/07/25 Subjective Subjective Interval history: Patient seen examined at bedside, on IV diuresis, tolerating well. Iron panel reviewed IV iron 34, was given IV iron. Heart rate is well-controlled on metoprolol succinate 50 mg. Transition to Eliquis. Potassium and magnesium was repleted. Continue atorvastatin 40 mg and aspirin daily Exam Vital Signs Temp Pulse Resp BP Pulse Ox O2 Del Method 97.6 F 91 19 104/61 96 Room Air 08/07/25 12:00 08/07/25 12:00 08/07/25 12:00 08/07/25 12:00 08/07/25 12:00 08/07/25 12:00 Narrative Exam Physical Exam General: Awake and in no acute distress. Conversational and non-toxic appearing. HEENT: Normocephalic, atraumatic, mucous membranes moist. Heart: Irregularly irregular, no murmurs. Lungs: Some bibasilar crackles Abdomen: Soft, nondistended, nontender, positive bowel sounds. ?No guarding or rebound tenderness. Neurologic: Alert and oriented x3, no gross neurological deficit, and patient able to move all 4 extremities. Extremities: Trace bilateral lower extremity edema Skin: No rash or ecchymoses. Objective Labs 08/08/25 05:15 08/08/25 05:15 Labs: Laboratory Results - last 24 hr 08/06/25 08/06/25 08/07/25 13:20 17:54 02:22 WBC RBC Hgb Hct MCV MCH MCHC RDW Std Deviation Plt Count Neut % (Auto) Lymph % (Auto) [place] % (Auto) Eos % (Auto) Baso % (Auto) Neut # (Auto) Lymph # (Auto) [place] # (Auto) Eos # (Auto) Baso # (Auto) Immature Gran # (Auto) Absolute Nucleated RBC Immature Gran % Nucleated RBC % PT 11.5 INR 1.1 APTT 25.8 42.0 H D Sodium Potassium Chloride Carbon Dioxide Anion Gap BUN Creatinine Estim Creat Clear Calc eGFR BUN/Creatinine Ratio Glucose Estimated Ave Glu mg/dL 123 Hemoglobin A1c 5.9 Calculated Osmolality Calcium Corrected Calcium Phosphorus Magnesium 1.8 Iron TIBC Iron Saturation Unsat Iron Binding Ferritin Total Bilirubin AST ALT Alkaline Phosphatase Troponin I < 0.020 Total Protein Albumin Globulin Albumin/Globulin Ratio Triglycerides 89 Cholesterol 173 LDL Cholesterol, Calc 116 HDL Cholesterol 39 L Cholesterol/HDL Ratio 4.4 TSH 1.02 Free T4 1.33 Hepatitis A IgM Ab Non Reactive Hep Bs Antigen Non Reactive Hep B Core IgM Ab Non Reactive Hepatitis C Antibody Non Reactive 08/07/25 08/07/25 04:28 09:35 WBC 8.2 RBC 4.79 Hgb 13.2 L Hct 40.6 L MCV 85 MCH 27.6 MCHC 32.5 RDW Std Deviation 40.7 Plt Count 193 Neut % (Auto) 44 Lymph % (Auto) 26 [place] % (Auto) 8 Eos % (Auto) 21 H Baso % (Auto) 1 Neut # (Auto) 3.7 Lymph # (Auto) 2.2 [place] # (Auto) 0.6 Eos # (Auto) 1.7 H Baso # (Auto) 0.1 Immature Gran # (Auto) 0.01 H Absolute Nucleated RBC 0.00 Immature Gran % 0 Nucleated RBC % 0 PT INR APTT 62.6 H D Sodium 146 H Potassium 3.8 D Chloride 107 Carbon Dioxide 26.9 Anion Gap 12 BUN 16 Creatinine 1.1 Estim Creat Clear Calc 89.7 eGFR > 60 BUN/Creatinine Ratio [address] Glu mg/dL Hemoglobin A1c Calculated Osmolality 292 Calcium 8.6 Corrected Calcium 8.7 Phosphorus 3.9 Magnesium 2.2 Iron 34 L TIBC 293 Iron Saturation 11 L Unsat Iron Binding 259 Ferritin 182 Total Bilirubin 0.4 AST 45 H ALT 81 H Alkaline Phosphatase 52 Troponin I Total Protein 6.0 Albumin 3.9 Globulin 2.1 L Albumin/Globulin Ratio 1.9 Triglycerides Cholesterol LDL Cholesterol, Calc HDL Cholesterol Cholesterol/HDL Ratio TSH Free T4 Hepatitis A IgM Ab Hep Bs Antigen Hep B Core IgM Ab Hepatitis C Antibody Quality Measures Quality Measures VTE prophylaxis Assessment & Plan Assessment Current Active Medications: Generic Name Dose Route Start Last Admin Trade Name Freq PRN Reason Stop Dose Admin Aspirin 81 mg 08/07/25 09:00 08/07/25 08:19 Aspirin Ec 81 Mg Tabec PO 09/06/25 08:59 81 mg QDAY JOSEFINA Administration Atorvastatin Calcium 40 mg 08/06/25 21:00 08/06/25 21:46 Atorvastatin Calcium 20 Mg Tablet PO 09/05/25 20:59 40 mg HS JOSEFINA Administration Furosemide 40 mg 08/06/25 18:45 08/07/25 05:33 Furosemide Inj 10 Mg/Ml 4ml Vial IVP 09/05/25 18:44 40 mg BIDD JOSEFINA Administration Heparin Sodium/Dextrose 25,000 unit in 250 mls @ 10.678 mls/hr 08/06/25 19:30 08/07/25 11:28 Heparin In D5w Ivpb IV 08/20/25 19:29 13 units/kg/hr .[id number] JOSEFINA 12.619 mls/hr Protocol Titration 11 UNITS/KG/HR Metoprolol Succinate 50 mg 08/07/25 09:00 08/07/25 08:18 Metoprolol Succinate Xl 25 Mg Tabcr PO 09/06/25 08:59 50 mg QDAY JOSEFINA Administration Plan Assessment and plan: Summary: Mr. Deleon is a 54-year-old male with past medical history of osteoarthritis and remote history of methamphetamine use who presented to [facility] emergency department with a chief complaint of chest pain and shortness of breath. Patient admitted for new onset atrial fibrillation RVR, monitoring for cardiac chest pain and new onset heart failure. #New onset atrial fibrillation with rapid ventricular response Patient presented with new onset chest pain which started overnight, EKG on presentation shows A-fib RVR, rate 150. Patient also endorsed palpitations and some shortness of breath. Patient was given diltiazem 20 mg IV x 1, given metoprolol succinate 50 mg p.o. x 1. 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 Trace bilateral lower extremity edema, minimal bibasilar crackles, chest x-ray shows moderate vascular congestion, small left-sided pleural effusion. Patient denies any history of heart failure. History of on and off alcohol use, reports drinking a lot in the past, continues to drink 2 3 beers occasionally, remote history of methamphetamine use. Drug screen negative for methamphetamine. BNP on presentation 451. Iron 34, TIBC 293, iron saturation 11%, iron sat iron binding 259, ferritin 182 Echocardiogram 08/06/2025 shows: 1. Dilated Cardiomyopathy. 2. Left ventricle size is mildly enlarged and systolic function is severely reduced. Estimated ejection fraction is 15-20%. There is indeterminate diastolic function. There is concentric remodeling noted. 3. Right ventricle chamber size is mildly enlarged and systolic function is mild to moderately reduced. Estimated RVSP is 33 mmHg. Mild pulmonary HTN. 4. There is mild aortic valve sclerosis. Mild MR,TR,PI and trace PI. 5. The left atrium is moderately enlarged . LA volume of 89ml. The right atrium is mildly enlarged. 6. Normal IVC with estimated RA pressure 3 mmHg. Recommendations: - Diuresis with Lasix 40 mg IV twice daily - Strict intake and output, daily weight, low-sodium diet, fluid restriction 1500 cc - Continue metoprolol succinate 50 mg daily, will need to introduce GDMT post diuresis, will consider starting patient on STEVE/ARB/ARNI and spironolactone as blood pressure tolerates. - Patient will need to follow-up outpatient closely for further workup. - Advised patient to refrain from alcohol and methamphetamine use - Continue IV iron #Cardiac chest pain, resolved Patient reports history of chest pain, 9/10 radiating to the left side in the epigastric region associated with nausea, at bedside currently complains of 3/10 chest pain. Patient reported that his chest pain woke him up from sleep and he was unable to go back to sleep and was associated with palpitations and difficulty breathing. EKG on presentation shows A-fib RVR, no acute ST-T changes, T wave inversion noted in V5 V6, flattening of T waves noted lead V1?V4. Troponin on presentation 0.021, repeat troponin negative less than 0.020 Hemoglobin A1c 5.9, TSH 1.02, free T4 1.33, cholesterol 173, LDL 116, HDL 39, triglyceride 89 CAD risk factors: Dyslipidemia LDL 116, HDL 39; alcohol use and history of methamphetamine use; BMI 30.7; history of smoking, 20 pack years; family history of heart disease and father and brother Recommendations: - Continue aspirin 81 mg daily - Patient is on heparin drip due to elevated [id number] score of 2, continue - Will monitor for chest pain - Continue atorvastatin 40 mg at bedtime #Dyslipidemia Cholesterol 173, LDL 116, HDL 39, triglyceride 89 - Continue atorvastatin 40 mg at bedtime #Transaminitis #Osteoarthritis Management per primary hospitalist team Thank you for the consult and allowing to participate in the care of the patient. Cardiology will continue to follow. Case discussed with Attending Physician Dr. Sudhir Zuniga MD Internal Medicine PGY-2 Disclaimer: This note was dictated by speech recognition. Minor errors in blood bank calendar control clerk may be present due to voice recognition software. Attending Provider Attestation/Addendum I have personally seen and examined the patient separately on the above date of service and discussed the plan of care with the resident. I reviewed the resident Dr. Margarita Zuniga consultation progress note and agree with the resident findings and plan in the note above and have also edited the documentation to reflect my findings and plan. Sudhir Hollingsworth M.D. Interventional Cardiology
[2025-08-07] MEDS: IRON SUCROSE CPLX INJ 20 MG/ML VIAL 5 ML 200 MG IVP (13:06)
--- NOTE | 2025-08-07 13:19 | ESPR_ITS ---
<Statement entered by Bill Ghotra MD - 08/07/25 13:22> No acute overnight events. Seen and examined at bedside and patient resting comfortably in bed. States that he has not experienced chest pain since being admitted and denies shortness of breath. Vital signs stable with pulse of 91 and hemodynamically stable. CBC unremarkable. CHEM panel showing slight hyponatremia but otherwise shows mild iron deficiency, LFTs improving, LDL 116, HDL 39. Echo showed EF 15 to 20% with concentric remodeling, RVSP 33 mmHg. Started on Lasix and cardiology to begin GDMT. Currently rate controlled on metoprolol 50 mg daily and given iron for iron deficiency. Currently on heparin drip and will transition to Eliquis upon discharge. Will follow-up on cardio recs and anticipate discharge in the next 24 to 48 hours. ----- Note reviewed and agree with care plan as documented. Please refer to the note below for further details. Plan discussed with attending physician Dr. Mela Ghotra MD PGY-2 Internal Medicine Documentation for date of: 08/07/25 Subjective Subjective Interval history: NAEO. Patient ofund to have dilated cardiomyopathy on echo. LV EF 15-20%. Patient is asymptomatic, no chest pain, shortness of breath today. Slowly incorporating gdmt as blood pressure allows. Cardiology following closely. Exam Vital Signs Temp Pulse Resp BP Pulse Ox O2 Del Method 97.6 F 91 19 104/61 96 Room Air 08/07/25 12:00 08/07/25 12:00 08/07/25 12:00 08/07/25 12:00 08/07/25 12:00 08/07/25 12:00 Narrative Exam General: No acute distress; A&Ox3 Skin: Warm, dry, intact, no obvious rash. HENT: Teeth missing (1 year); NCAT, EOMI/PERRL, not icteric. External ears normal. No rhinorrhea. Moist mucous membranes Cardiovascular: Regular rate and rhythm, no murmur, +S1/S2. Respiratory: Lungs CTAB GI: Soft, nontender, non-distended. No guarding or rebound tenderness. : No suprapubic tenderness. No flank tenderness bilaterally. Extremities: no edema, no cyanosis, no clubbing. Extremity pulses present Neuro: Grossly nonfocal. Moving all 4 extremities. CN not formally tested but appear grossly intact. Psychiatric: Cooperative, appropriate affect. Objective Labs 08/08/25 05:15 08/08/25 05:15 Labs: Laboratory Results - last 24 hr 08/06/25 08/06/25 08/07/25 13:20 17:54 02:22 WBC RBC Hgb Hct MCV MCH MCHC RDW Std Deviation Plt Count Neut % (Auto) Lymph % (Auto) [place] % (Auto) Eos % (Auto) Baso % (Auto) Neut # (Auto) Lymph # (Auto) [place] # (Auto) Eos # (Auto) Baso # (Auto) Immature Gran # (Auto) Absolute Nucleated RBC Immature Gran % Nucleated RBC % PT 11.5 INR 1.1 APTT 25.8 42.0 H D Sodium Potassium Chloride Carbon Dioxide Anion Gap BUN Creatinine Estim Creat Clear Calc eGFR BUN/Creatinine Ratio Glucose Estimated Ave Glu mg/dL 123 Hemoglobin A1c 5.9 Calculated Osmolality Calcium Corrected Calcium Phosphorus Magnesium 1.8 Iron TIBC Iron Saturation Unsat Iron Binding Ferritin Total Bilirubin AST ALT Alkaline Phosphatase Troponin I < 0.020 Total Protein Albumin Globulin Albumin/Globulin Ratio Triglycerides 89 Cholesterol 173 LDL Cholesterol, Calc 116 HDL Cholesterol 39 L Cholesterol/HDL Ratio 4.4 TSH 1.02 Free T4 1.33 Hepatitis A IgM Ab Non Reactive Hep Bs Antigen Non Reactive Hep B Core IgM Ab Non Reactive Hepatitis C Antibody Non Reactive 08/07/25 08/07/25 04:28 09:35 WBC 8.2 RBC 4.79 Hgb 13.2 L Hct 40.6 L MCV 85 MCH 27.6 MCHC 32.5 RDW Std Deviation 40.7 Plt Count 193 Neut % (Auto) 44 Lymph % (Auto) 26 Russell % (Auto) 8 Eos % (Auto) 21 H Baso % (Auto) 1 Neut # (Auto) 3.7 Lymph # (Auto) 2.2 Russell # (Auto) 0.6 Eos # (Auto) 1.7 H Baso # (Auto) 0.1 Immature Gran # (Auto) 0.01 H Absolute Nucleated RBC 0.00 Immature Gran % 0 Nucleated RBC % 0 PT INR APTT 62.6 H D Sodium 146 H Potassium 3.8 D Chloride 107 Carbon Dioxide 26.9 Anion Gap 12 BUN 16 Creatinine 1.1 Estim Creat Clear Calc 89.7 eGFR > 60 BUN/Creatinine Ratio 15 [address]ucose [address] Glu mg/dL Hemoglobin A1c Calculated Osmolality 292 Calcium 8.6 Corrected Calcium 8.7 Phosphorus 3.9 Magnesium 2.2 Iron 34 L TIBC 293 Iron Saturation 11 L Unsat Iron Binding 259 Ferritin 182 Total Bilirubin 0.4 AST 45 H ALT 81 H Alkaline Phosphatase 52 Troponin I Total Protein 6.0 Albumin 3.9 Globulin 2.1 L Albumin/Globulin Ratio 1.9 Triglycerides Cholesterol LDL Cholesterol, Calc HDL Cholesterol Cholesterol/HDL Ratio TSH Free T4 Hepatitis A IgM Ab Hep Bs Antigen Hep B Core IgM Ab Hepatitis C Antibody Quality Measures Quality Measures VTE prophylaxis Assessment & Plan Assessment Current Active Medications: Generic Name Dose Route Start Last Admin Trade Name Freq PRN Reason Stop Dose Admin Aspirin 81 mg 08/07/25 09:00 08/07/25 08:19 Aspirin Ec 81 Mg Tabec PO 09/06/25 08:59 81 mg QDAY JOSEFINA Administration Atorvastatin Calcium 40 mg 08/06/25 21:00 08/06/25 21:46 Atorvastatin Calcium 20 Mg Tablet PO 09/05/25 20:59 40 mg HS JSOEFINA Administration Furosemide 40 mg 08/06/25 18:45 08/07/25 05:33 Furosemide Inj 10 Mg/Ml 4ml Vial IVP 09/05/25 18:44 40 mg BIDD JOSEFINA Administration Heparin Sodium/Dextrose 25,000 unit in 250 mls @ 10.678 mls/hr 08/06/25 19:30 08/07/25 11:28 Heparin In D5w Ivpb IV 08/20/25 19:29 13 units/kg/hr .[id number] JOSEFINA 12.619 mls/hr Protocol Titration 11 UNITS/KG/HR Metoprolol Succinate 50 mg 08/07/25 09:00 08/07/25 08:18 Metoprolol Succinate Xl 25 Mg Tabcr PO 09/06/25 08:59 50 mg QDAY JOSEFINA Administration Plan Patient is a 54-year-old male with no past medical history presented to the ED [facility] with chief complaint of chest pain and shortness of breath; admitted for new onset afib. Echo done, found to have dilated cardiomyopathy with LV EF 15-20%. #New onset afib with rvr EKG that shows A-fib with RVR, QTc 471 chadsvasc score of 1; has-bled score of 0 No home meds -heparin drip -metoprolol succinate 50 mg po qd -Keep potassium greater than 4 and magnesium greater than 2 at all times -Continue telemetry monitoring #Acute decompensated heart failure #New onset right and left sided systolic and diastolic heart failure with reduced ejection fraction, EF 15 to 20% #Dilated cardiomyopathy #Moderate vascular congestion with small left pleural effusion #BNP elevation #dyspnea, RESOLVED Patient had central chest pain at rest radiating to epigastrium and L-side chest on admission; never felt this before, also noted difficutly breathing with shortness of breath. 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 Heart disease in father and brother. Patient given diltiazem 20 mg, LR 1 L, Lasix 40 mg, magnesium sulfate 2 g, Protonix 40 mg, metoprolol succinate 50 mg in ED Trops negative; UTOX negative; EKG showed AFIB; given loading aspirin ECHO 08/06/2025 notable for dilated cardiomyopathy; LV EF 15-20%, RV EF mild-mod reduced - Diuresis with Lasix 40 mg IV twice daily - Strict intake and output, daily weight, low-sodium diet, fluid restriction 1500 cc - Continue metoprolol succinate 50 mg daily, will need to introduce GDMT post diuresis, will consider starting patient on STEVE/ARB/ARNI and spironolactone as blood pressure tolerates. - Patient will need to follow-up outpatient closely for further workup. - Advised patient to refrain from alcohol and methamphetamine use - Will obtain iron panel, will consider IV iron replacement if low reserve -scheduled metoprolol succinate 50 mg po qd -Cardiology consulted, appreciate recommendations #Cardiac Chest Pain #ACS r/o #Possible unstable angina atient reports history of chest pain, 9/10 radiating to the left side in the epigastric region associated with nausea, at bedside currently complains of 3/10 chest pain. Patient reported that his chest pain woke him up from sleep and he was unable to go back to sleep and was associated with palpitations and difficulty breathing. EKG on presentation shows A-fib RVR, no acute ST-T changes, T wave inversion noted in V5 V6, flattening of T waves noted lead V1?V4. Trops negative; labs and history remarkable for HLD, alcohol and methamphetamine use; smoking hx; family history of heart disease -Was given aspirin loading dose, continue aspirin 81 mg daily -Patient is on heparin drip due to elevated [id number] score of 2, continue -Will monitor for chest pain -Continue atorvastatin 40 mg at bedtime #HLD cholesterol 173, LDL 116, HDL 39, triglyceride 89 -atorvastatin 40 mg q hs #transaminitis Differentials are fatty liver disease (alcohol use when younger), viral hepatitis vs drug induced with chronic meth use AST 52, ALT 97 on admission -hep panel ordered -will continue to trend ast/alt levels Hospital Management: Disposition: Tele Diet: regular diet GI Prophylaxis: none Bowel Prophylaxis: none DVT Prophylaxis: heparin gtt CODE STATUS: full code Patient plan of care was discussed with the attending physician, Dr. Plaza & senior resident Dr. Brandin Metcalf MD PGY-1 Attending Provider Attestation/Addendum I have examined the patient, reviewed labs and imaging findings, discussed the case with the resident(s), and reviewed entered orders. I agree with the plan of care as outlined in this note. Dr. Mela MD
--- NOTE | 2025-08-07 13:22 | PC.SS ---
Cell Biology Scientist (LOVE) Radha met with the patient at the bedside to complete an initial assessment and discuss a discharge plan. Patient is alert and oriented to person, place, time, and situation, and provided verbal consent to participate in the assessment. The patient was admitted for a New onset AF. Patient is Joey Deleon, 54 y/o Portuguese-speaking male residing with his partner, but was unable to recall the address. Patient's mailing address is [address] [place] [id number]. Patient designated his partner, Evelin Walton, , as his surrogate medical decision maker. Patient reports that at baseline, he is independent, does not use oxygen at home, and is not receiving dialysis. The patient's pharmacy is [facility]. Patient's PCP is at [facility]. The patient's discharge plan is home, and his partner will provide transportation. No further needs from . Surrogate medical decision maker: Partner, Evelin, Discharge plan: Home
[2025-08-07 16:58] LABS: Partial Thromboplastin Time 66.5 Seconds (22.0-36.0)
[2025-08-07] MEDS: Heparin/D5w 25K 250 ML Ivpb 25,000 UNIT/250 ML BAG 12.619 UNIT IV (17:17)
[2025-08-07] MEDS: ATORVASTATIN CALCIUM 20 MG TABLET 40 MG PO (20:20)
[2025-08-07 21:49] LABS: Partial Thromboplastin Time 59.5 Seconds (22.0-36.0)
[2025-08-08] VITALS (15 sets, daily range): BP systolic 101–134; BP diastolic 73–91; PULSE 61–140; RESP 16–20; TEMP 36.2–36.5; O2SAT 92–98
[2025-08-08] MEDS: FUROSEMIDE INJ 10 MG/ML 4ML VIAL 40 MG IVP ×2 (05:24→18:36)
[2025-08-08 06:15] LABS: Basophils # (Auto) 0.1 Thou/mm3 (0.0-0.2); Basophils % (Auto) 1 % (0-2.5); Eosinophils # (Auto) 1.7 Thou/mm3 (0.0-0.5); Eosinophils % (Auto) 20 % (0-10); Hematocrit 43.1 % (41.0-53.0); Hemoglobin 14.0 g/dL (13.5-16.0); Immature Granulocytes Auto 0.01 Thou/mm3 (0.00-0.00); Lymphocytes # (Auto) 2.5 Thou/mm3 (1.0-4.8); Lymphocytes % (Auto) 29 % (10-50); Mean Corpuscular HGB Conc 32.5 g/dl (31.0-37.0); Mean Corpuscular Hemoglobin 27.6 pg (25.0-35.0); Mean Corpuscular Volume 85 fL (80-100); Monocytes # (Auto) 0.8 Thou/mm3 (0.0-0.8); Monocytes % (Auto) 9 % (0-12); Neutrophils # (Auto) 3.6 Thou/mm3 (1.8-7.7); Neutrophils % (Auto) 42 % (37-80); Nucleated Red Blood Cell # 0.00 Thou/mm3 (0.00-0.00); Nucleated Red Blood Cell % 0 /100 WBC (0); Platelet Count 184 Thou/mm3 (140-440); RDW Standard Deviation 40.3 fL (35.1-43.9); Red Blood Count 5.08 Miln/mm3 (4.50-5.90); White Blood Count 8.5 Thou/mm3 (3.8-10.6)
[2025-08-08 06:47] LABS: Alanine Aminotransferase 69 U/L (10-49); Albumin, Serum 3.7 gm/dL (3.5-5.0); Albumin/Globulin Ratio 1.4 (1.2-2.2); Alkaline Phosphatase 55 U/L (46-116); Anion Gap 11 (7-16); Aspartate Amino Transferase 28 U/L (0-34); BUN/Creatinine Ratio 15 Ratio (12-20); Bilirubin,Total 0.3 mg/dL (0.3-1.2); Blood Urea Nitrogen 17 mg/dL (9-23); Calcium 8.9 mg/dL (8.3-10.6); Calcium (Corrected) 9.1 mg/dL (8.5-10.1); Carbon Dioxide 26.1 mMol/L (20.0-31.0); Chloride 107 mMol/L (98-107); Creatinine (Component) 1.1 mg/dL (0.6-1.3); Estimated Creatinine Clearance 87.9 mL/min (>60); Globulin 2.7 gm/dL (2.3-3.5); Glucose 109 mg/dL (74-106); Magnesium 2.1 mg/dL (1.6-2.6); Osmolality,Calculated 289 (275-295); Phosphorous 3.7 mg/dL (2.4-5.1); Potassium 3.8 mMol/L (3.4-5.1); Sodium 144 mMol/L (136-145); Total Protein 6.4 gm/dL (5.7-8.2); eGFR > 60 See Note
--- NOTE | 2025-08-08 07:06 | PC.NURSE ---
PTT result still pending, endorsed to LUIS MIGUEL Marshall.
[2025-08-08 07:07] LABS: INR 1.1 (0.9-1.3); Partial Thromboplastin Time 60.8 Seconds (22.0-36.0); Prothrombin Time 11.5 Seconds (9.0-12.2)
[2025-08-08] MEDS: APIXABAN 2.5 MG TABLET 5 MG PO ×2 (08:10→20:46)
[2025-08-08] MEDS: ASPIRIN EC 81 MG TABEC PO (08:10)
[2025-08-08] MEDS: Magnesium Sulfate 2 GM Ivpb 2 GM/50 ML BAG IV (08:10)
[2025-08-08] MEDS: METOPROLOL SUCCINATE XL 25 MG TABCR 50 MG PO (08:10)
--- NOTE | 2025-08-08 11:12 | ESPR_ITS ---
Documentation for date of: 08/08/25 Subjective Subjective Interval history: No acute overnight events but patient noted to have about 10 beats of VT on telemetry last night. Patient did not have any symptoms and vital signs were stable at that time. At bedside, patient again did not have any complaints. Vital signs show pulse ranging between 110s and 140s but otherwise stable. CBC unremarkable, CHEM panel showing K of 3.8 and magnesium 2.1 for which both were given for VT overnight. Touched base with cardiology and recommended keeping 1 more night as patient was started on amiodarone drip. Patient was transition from heparin drip to Eliquis today as well. Will continue to follow-up cardiology recommendations. Anticipate discharge with next 24 to 48 hours Exam Vital Signs Temp Pulse Resp BP Pulse Ox O2 Del Method 97.7 F 117 H 16 113/83 96 Room Air 08/08/25 08:00 08/08/25 08:10 08/08/25 08:00 08/08/25 08:10 08/08/25 08:00 08/08/25 08:00 Narrative Exam General: No acute distress; A&Ox3 Skin: Warm, dry, intact, no obvious rash. HENT: Teeth missing (1 year); NCAT, EOMI/PERRL, not icteric. External ears normal. No rhinorrhea. Moist mucous membranes Cardiovascular: Regular rate and rhythm, no murmur, +S1/S2. Respiratory: Lungs CTAB GI: Soft, nontender, non-distended. No guarding or rebound tenderness. : No suprapubic tenderness. No flank tenderness bilaterally. Extremities: no edema, no cyanosis, no clubbing. Extremity pulses present Neuro: Grossly nonfocal. Moving all 4 extremities. CN not formally tested but appear grossly intact. Psychiatric: Cooperative, appropriate affect. Objective Labs 08/09/25 04:46 08/09/25 04:46 Labs: Laboratory Results - last 24 hr 08/07/25 08/07/25 08/08/25 16:08 21:00 05:15 WBC 8.5 RBC 5.08 Hgb 14.0 Hct 43.1 MCV 85 MCH 27.6 MCHC 32.5 RDW Std Deviation 40.3 Plt Count 184 Neut % (Auto) 42 Lymph % (Auto) 29 [place] % (Auto) 9 Eos % (Auto) 20 H Baso % (Auto) 1 Neut # (Auto) 3.6 Lymph # (Auto) 2.5 [place] # (Auto) 0.8 Eos # (Auto) 1.7 H Baso # (Auto) 0.1 Immature Gran # (Auto) 0.01 H Absolute Nucleated RBC 0.00 Immature Gran % 0 Nucleated RBC % 0 PT 11.5 INR 1.1 APTT 66.5 H 59.5 H 60.8 H Sodium 144 Potassium 3.8 Chloride 107 Carbon Dioxide 26.1 Anion Gap 11 BUN 17 Creatinine 1.1 Estim Creat Clear Calc 87.9 eGFR > 60 BUN/Creatinine Ratio 15 Glucose 109 H Calculated Osmolality 289 Calcium 8.9 Corrected Calcium 9.1 Phosphorus 3.7 Magnesium 2.1 Total Bilirubin 0.3 AST 28 ALT 69 H Alkaline Phosphatase 55 Total Protein 6.4 Albumin 3.7 Globulin 2.7 Albumin/Globulin Ratio 1.4 Quality Measures Quality Measures VTE prophylaxis Assessment & Plan Assessment Current Active Medications: Generic Name Dose Route Start Last Admin Trade Name Freq PRN Reason Stop Dose Admin Apixaban 5 mg 08/08/25 09:00 08/08/25 08:10 Apixaban 2.5 Mg Tablet PO 09/07/25 08:59 5 mg BID JOSEFINA Administration Aspirin 81 mg 08/07/25 09:00 08/08/25 08:10 Aspirin Ec 81 Mg Tabec PO 09/06/25 08:59 81 mg QDAY JOSEFINA Administration Atorvastatin Calcium 40 mg 08/06/25 21:00 08/07/25 20:20 Atorvastatin Calcium 20 Mg Tablet PO 09/05/25 20:59 40 mg HS JOSEFINA Administration Furosemide 40 mg 08/06/25 18:45 08/08/25 05:24 Furosemide Inj 10 Mg/Ml 4ml Vial IVP 09/05/25 18:44 40 mg BIDD JOSEFINA Administration Amiodarone HCl/Dextrose 360 mg in 200 mls @ 33.333 mls/hr 08/08/25 09:17 Nexterone Ivpb IV 08/08/25 15:16 .Q6H ONE Amiodarone HCl/Dextrose 360 mg in 200 mls @ 16.667 mls/hr 08/08/25 15:16 Nexterone Ivpb IV 08/09/25 15:15 .Q12H JOSEFINA Metoprolol Succinate 50 mg 08/07/25 09:00 08/08/25 08:10 Metoprolol Succinate Xl 25 Mg Tabcr PO 09/06/25 08:59 50 mg QDAY JOSEFINA Administration Potassium Chloride 20 meq 08/08/25 12:00 Potassium Chloride 20 Meq Tabcr PO 08/08/25 12:01 X1 ONE Plan 54-year-old male with no past medical history presented to the ED [facility] admitted for new onset afib and found to have HFrEF. #New onset afib with RVR EKG shows A-fib with RVR, QTc 471. [id number] score of 1, HAS-BLED score of 0. ? Cardiology consulted, appreciate recommendations ? Metoprolol succinate 50 mg daily ? Eliquis 5 mg p.o. twice daily ? Continue to monitor on telemetry ? Keep K > 4 and Mg > 2 #Nonsustained VT 10 beats of VT overnight, vital signs stable and patient asymptomatic. ? Amiodarone drip ? Continue to monitor on telemetry ? Keep K > 4 and Mg > 2 #Acute decompensated heart failure #New onset right and left sided systolic and diastolic heart failure with reduced ejection fraction, EF 15 to 20% #Dilated cardiomyopathy #Moderate vascular congestion with small left pleural effusion Substernal chest pain at rest radiating to epigastrium and L-side chest on admission. Never felt this before. Also endorsed dyspnea on exertion. Has history of meth use and tobacco smoking use when younger. Brother had [place] in 40s and father had [place] in 60s. Echo 07/2025: EF 15 to 20%, concentric remodeling, LV mildly enlarged/dilated cardiomyopathy. RV mildly enlarged and systolic function mild to moderately reduced with RVSP of 33 mmHg. ? Continue metoprolol succinate 50 mg daily and introduce GDMT as blood pressure and renal function permits ? Lasix 40 mg IV twice daily ? Strict intake and output, daily weight, low-sodium diet, fluid restriction 1500 cc/day ? Close outpatient follow-up with cardiology ? Advised to refrain from alcohol and methamphetamine use #Cardiac chest pain #Unstable angina Reports history of chest pain, 9/10 radiating to left side and epigastrium with associated nausea. Reported that his chest pain woke him up from sleep and unable to go back to sleep and was associated with palpitations and difficulty breathing. EKG on presentation shows A-fib RVR, no acute ST-T changes, T wave inversion noted in V5/V6, flattening of T waves noted lead V1?V4. Trops negative. Strong family history of cardiac disease with [place] in brother in 40s and father in 60s. ? Was given loading dose aspirin, continue aspirin 81 mg daily ? Atorvastatin 40 mg at bedtime #Hyperlipidemia cholesterol 173, LDL 116, HDL 39, triglyceride 89 ? Atorvastatin 40 mg at bedtime #Transaminitis, resolving Differentials are fatty liver disease (alcohol use when younger), viral hepatitis vs drug induced with chronic meth use AST 52, ALT 97 on admission. Hepatitis panel negative. ? Continue to monitor CMP Hospital Management: Disposition: cardio recommendations, on amiodarone drip Diet: regular diet with cardiac modifications and fluid restriction GI Prophylaxis: none Bowel Prophylaxis: none DVT Prophylaxis: eliquis 5 mg BID CODE STATUS: full code ----- Plan discussed with attending physician Dr. Mela Ghotra MD PGY-2 Internal Medicine Attending Provider Attestation/Addendum I have examined the patient, reviewed labs and imaging findings, discussed the case with the resident(s), and reviewed entered orders. I agree with the plan of care as outlined in this note. Dr. Mela MD
[2025-08-08] MEDS: IRON SUCROSE CPLX INJ 20 MG/ML VIAL 5 ML 100 MG IVP (11:17)
[2025-08-08] MEDS: AMIODARONE 150 MG IVPB 150 MG/100 ML BAG 600 MG IV (11:17)
[2025-08-08] MEDS: AMIODARONE 360 MG IVPB 360 MG/200 ML BAG 33.333 MG IV (11:39)
--- NOTE | 2025-08-08 12:54 | ESPR_ITS ---
<Statement entered by Margarita Zuniga MD - 08/08/25 18:41> Patient was seen and examined by me personally. I have reviewed the below documentation by the team resident Dr Keith Poole DO PGY-1 and agree with its findings. Mr. Deleon is a 54-year-old male with past medical history of osteoarthritis and remote history of methamphetamine use who presented to [facility] emergency department with a chief complaint of chest pain and shortness of breath. Patient admitted for new onset atrial fibrillation with rapid ventricular response, found to have new onset right and left side systolic and diastolic heart failure with reduced ejection fraction EF 15 to 20%. 08/08- Patient found to be in rapid ventricular response this morning, telemetry overnight shows episodes of V. tach. Decision made to start patient on amiodarone gtt., transition patient to amiodarone 200 mg p.o. twice daily in a.m. which can be decreased to amiodarone 200 mg daily after 1 month. Patient was informed regarding long-term side effects of amiodarone, verbalized understanding. Continue IV diuresis. Will decrease metoprolol succinate dose to 25 mg daily, continue with rate controlled, consider adding sacubitril?valsartan in AM for GDMT. Continue Eliquis 5 mg p.o. twice daily and aspirin 81 mg daily. Electrolytes were repleted adequately. Case discussed with Attending Physician Dr. Sudhir Zuniga MD Internal Medicine PGY-2 Disclaimer: This note was dictated by speech recognition. Minor errors in leather stretcher may be present due to voice recognition software. Documentation for date of: 08/08/25 Subjective Subjective Interval history: History of present illness: Mr. Deleon is a 54-year-old male with past medical history of osteoarthritis and remote history of methamphetamine use who presented to [facility] emergency department with a chief complaint of chest pain and shortness of breath. Patient reported that his symptoms started last night, retrosternal chest pain 9/10 radiating to the left and in the epigastric region associated with nausea, denies any vomiting/diaphoresis. Patient reported difficulty sleeping due to the chest pain also endorsed palpitations and difficulty breathing describes it as a choking sensation. Patient has not had any similar episodes in the past. Patient denies any past medical history of hypertension hyperlipidemia, Endorses history of methamphetamine use in the past, history of smoking and alcohol use around 2-3 beers once in a while, Patient is overweight, BMI 30.7 and has family history of heart disease reports in father and brother. Denies any history of hypertension, hyperlipidemia, diabetes mellitus, thyroid disorder. ED course: On presentation to ED blood pressure 138/102, heart rate 108, respirate rate 16, temp 98.1, O2 sat 95 on room air on presentation. Labs on presentation show WBC 8.7, hemoglobin 13.9, platelet count 192. Eosinophilia 16% noted. Coags INR 1.1, APTT 25.8, PT 11.5. CMP shows sodium 144, potassium 4.4, chloride 108, anion gap 10, BUN 19, creatinine 1.2, GFR greater than 60, A1c 5.9, magnesium 1.8, calcium 9.3, AST 52, ALT 97, bilirubin 0.6, troponin negative at 0.021 and repeat troponin negative at 0.20, BNP 451, albumin 4.1, triglyceride 89, cholesterol 173, LDL 116, HDL 39, TSH 1.02, free T4 1.33. Urinalysis shows 6 RBC, protein 1+ urine toxicology screen negative. EKG obtained in ER shows atrial fibrillation with rapid ventricular response rate 150, chest x-ray shows early heart failure with mild vascular congestion, septal edema with small left pleural effusion. Patient was given diltiazem 20 mg IV x 1, 1 L LR bolus and Lasix 40 mg x 1 in ED. PMH: Positive for osteoarthritis, methamphetamine use PSHx: Denies Allergies: Penicillin Social history: -Smoking: Positive smoking in the past, 20 pack years -Alcohol Use: Occasional alcohol use, 2-3 beer once in a while -Illicit Drug Use: History of methamphetamine use in the past -Occupation: Works at [employer] -Martial Status: Lives at [employer] with Family History: Positive family history for heart disease in father and brother 08/07/2025: Patient seen examined at bedside, on IV diuresis, tolerating well. Iron panel reviewed IV iron 34, was given IV iron. Heart rate is well-controlled on metoprolol succinate 50 mg. Transition to Eliquis. Potassium and magnesium was repleted. Continue atorvastatin 40 mg and aspirin daily 08/08/2025: No Overnight events. Labs reviewed and patient examined at the bedside. Patient still has A fib with RVR. Noted to have 10 beats of VT overnight. BP was 113/83 with HR 140. Pt was on metoprolol 50mg po qd. Will add Amiodarone drip. In the morning, change to amidarone 200mg po bid. Then decrease to once a day for 1 month. Discontinue heparin drip and change to eliquis po. Decrease metoprolol to 25 mg po qd. Consider adding sacubitril-valsartan in morning for GDMT. Eliquis 5mg po bid, Aspirin 81mg po qd, IV furosemide 40mg bid, and Atorvastatin 40mg po hs. Will continue to monitor. Exam Vital Signs Temp Pulse Resp BP Pulse Ox O2 Del Method 97.5 F 111 H 19 114/88 H 95 Room Air 08/08/25 11:54 08/08/25 12:00 08/08/25 11:54 08/08/25 11:54 08/08/25 11:54 08/08/25 11:54 Narrative Exam General: Awake and in no acute distress. Conversational and non-toxic appearing. HEENT: Normocephalic, atraumatic, mucous membranes moist. Heart: Irregularly irregular, no murmurs. Lungs: Some bibasilar crackles Abdomen: Soft, nondistended, nontender, positive bowel sounds. ?No guarding or rebound tenderness. Neurologic: Alert and oriented x3, no gross neurological deficit, and patient able to move all 4 extremities. Extremities: Trace bilateral lower extremity edema Skin: No rash or ecchymoses. Objective Labs 08/08/25 05:15 08/08/25 05:15 Labs: Laboratory Results - last 24 hr 08/07/25 08/07/25 08/08/25 16:08 21:00 05:15 WBC 8.5 RBC 5.08 Hgb 14.0 Hct 43.1 MCV 85 MCH 27.6 MCHC 32.5 RDW Std Deviation 40.3 Plt Count 184 Neut % (Auto) 42 Lymph % (Auto) 29 Alcorn % (Auto) 9 Eos % (Auto) 20 H Baso % (Auto) 1 Neut # (Auto) 3.6 Lymph # (Auto) 2.5 Alcorn # (Auto) 0.8 Eos # (Auto) 1.7 H Baso # (Auto) 0.1 Immature Gran # (Auto) 0.01 H Absolute Nucleated RBC 0.00 Immature Gran % 0 Nucleated RBC % 0 PT 11.5 INR 1.1 APTT 66.5 H 59.5 H 60.8 H Sodium 144 Potassium 3.8 Chloride 107 Carbon Dioxide 26.1 Anion Gap 11 BUN 17 Creatinine 1.1 Estim Creat Clear Calc 87.9 eGFR > 60 BUN/Creatinine Ratio 15 Glucose 109 H Calculated Osmolality 289 Calcium 8.9 Corrected Calcium 9.1 Phosphorus 3.7 Magnesium 2.1 Total Bilirubin 0.3 AST 28 ALT 69 H Alkaline Phosphatase 55 Total Protein 6.4 Albumin 3.7 Globulin 2.7 Albumin/Globulin Ratio 1.4 Quality Measures Quality Measures VTE prophylaxis Assessment & Plan Assessment Current Active Medications: Generic Name Dose Route Start Last Admin Trade Name Freq PRN Reason Stop Dose Admin Apixaban 5 mg 08/08/25 09:00 08/08/25 08:10 Apixaban 2.5 Mg Tablet PO 09/07/25 08:59 5 mg BID JOSEFINA Administration Aspirin 81 mg 08/07/25 09:00 08/08/25 08:10 Aspirin Ec 81 Mg Tabec PO 09/06/25 08:59 81 mg QDAY JOSEFINA Administration Atorvastatin Calcium 40 mg 08/06/25 21:00 08/07/25 20:20 Atorvastatin Calcium 20 Mg Tablet PO 09/05/25 20:59 40 mg HS JOSEFINA Administration Furosemide 40 mg 08/06/25 18:45 08/08/25 05:24 Furosemide Inj 10 Mg/Ml 4ml Vial IVP 09/05/25 18:44 40 mg BIDD JOSEFINA Administration Amiodarone HCl/Dextrose 360 mg in 200 mls @ 33.333 mls/hr 08/08/25 09:17 08/08/25 11:39 Nexterone Ivpb IV 08/08/25 15:16 33.333 mls/hr .Q6H ONE Administration Amiodarone HCl/Dextrose 360 mg in 200 mls @ 16.667 mls/hr 08/08/25 15:16 Nexterone Ivpb IV 08/09/25 15:15 .Q12H JOSEFINA Metoprolol Succinate 50 mg 08/07/25 09:00 08/08/25 08:10 Metoprolol Succinate Xl 25 Mg Tabcr PO 09/06/25 08:59 50 mg QDAY JOSEFINA Administration Plan Mr. Deleon is a 54-year-old male with past medical history of osteoarthritis and remote history of methamphetamine use who presented to [facility] emergency department with a chief complaint of chest pain and shortness of breath. Patient admitted for new onset atrial fibrillation RVR, monitoring for cardiac chest pain and new onset heart failure. #New onset atrial fibrillation with rapid ventricular response Patient presented with new onset chest pain which started overnight, EKG on presentation shows A-fib RVR, rate 150. Patient also endorsed palpitations and some shortness of breath. Patient was given diltiazem 20 mg IV x 1, given metoprolol succinate 50 mg p.o. x 1. [id number] score 2 points, anticoagulation recommended HAS-BLED score 1 point, risk of 1.02 bleeds per 100 patient years Recommendations: -Continue metoprolol succinate 50 mg daily -Discontinue heparin drip and transition to Eliquis 5mg po bid when no contraindications -On Amiodarone drip -Keep potassium greater than 4 and magnesium greater than 2 at all times -Continue telemetry monitoring #Acute decompensated heart failure #New onset right and left sided systolic and diastolic heart failure with reduced ejection fraction, EF 15 to 20% #Dilated cardiomyopathy #Moderate vascular congestion with small left pleural effusion Patient complaining of chest pain, shortness of breath, difficulty breathing. Trace bilateral lower extremity edema, minimal bibasilar crackles, chest x-ray shows moderate vascular congestion, small left-sided pleural effusion. Patient denies any history of heart failure. History of on and off alcohol use, reports drinking a lot in the past, continues to drink 2 3 beers occasionally, remote history of methamphetamine use. Drug screen negative for methamphetamine. BNP on presentation 451. Iron 34, TIBC 293, iron saturation 11%, iron sat iron binding 259, ferritin 182 Echocardiogram 08/06/2025 shows: 1. Dilated Cardiomyopathy. 2. Left ventricle size is mildly enlarged and systolic function is severely reduced. Estimated ejection fraction is 15-20%. There is indeterminate diastolic function. There is concentric remodeling noted. 3. Right ventricle chamber size is mildly enlarged and systolic function is mild to moderately reduced. Estimated RVSP is 33 mmHg. Mild pulmonary HTN. 4. There is mild aortic valve sclerosis. Mild MR,TR,PI and trace PI. 5. The left atrium is moderately enlarged . LA volume of 89ml. The right atrium is mildly enlarged. 6. Normal IVC with estimated RA pressure 3 mmHg. Recommendations: - Diuresis with Lasix 40 mg IV twice daily - Strict intake and output, daily weight, low-sodium diet, fluid restriction 1500 cc - Continue metoprolol succinate 50 mg daily, will need to introduce GDMT post diuresis, will consider starting patient on STEVE/ARB/ARNI and spironolactone as blood pressure tolerates. - Patient will need to follow-up outpatient closely for further workup. - Advised patient to refrain from alcohol and methamphetamine use - Continue IV iron #Non-sustained V tac -On 08/08, pt had 10 beats of Vtac. This morning, patient is asymptomatic -Started on Amiodarone drip. -Mg>2, and K>4 -Continue tele monitoring. #Cardiac chest pain, resolved Patient reports history of chest pain, 9/10 radiating to the left side in the epigastric region associated with nausea, at bedside currently complains of 3/10 chest pain. Patient reported that his chest pain woke him up from sleep and he was unable to go back to sleep and was associated with palpitations and difficulty breathing. EKG on presentation shows A-fib RVR, no acute ST-T changes, T wave inversion noted in V5 V6, flattening of T waves noted lead V1?V4. Troponin on presentation 0.021, repeat troponin negative less than 0.020 Hemoglobin A1c 5.9, TSH 1.02, free T4 1.33, cholesterol 173, LDL 116, HDL 39, triglyceride 89 CAD risk factors: Dyslipidemia LDL 116, HDL 39; alcohol use and history of methamphetamine use; BMI 30.7; history of smoking, 20 pack years; family history of heart disease and father and brother Recommendations: - Continue aspirin 81 mg daily - Patient is on heparin drip due to elevated [id number] score of 2, continue - Will monitor for chest pain - Continue atorvastatin 40 mg at bedtime #Dyslipidemia Cholesterol 173, LDL 116, HDL 39, triglyceride 89 - Continue atorvastatin 40 mg at bedtime #Transaminitis #Osteoarthritis Management per primary hospitalist team Thank you for the consult and allowing to participate in the care of the patient. Cardiology will continue to follow. Attending Provider Attestation/Addendum I have personally seen and examined the patient separately on the above date of service and discussed the plan of care with the resident. I reviewed the resident Dr. Keith Poole / Margarita Zuniga consultation progress note and agree with the resident findings and plan in the note above and have also edited the documentation to reflect my findings and plan. Sudhir Hollingsworth M.D. Interventional Cardiology
--- NOTE | 2025-08-08 16:11 | PC.SS ---
Rounding note: Patient was placed on amiodarone drip by cardiology and transitioned from heparin drip to Eliquis today as well. Anticipate discharge with next 24 to 48 hours. d/c plan: Home, transportation will be provided by significant other.
[2025-08-08] MEDS: AMIODARONE 360 MG IVPB 360 MG/200 ML BAG 16.667 MG IV (17:09)
[2025-08-08] MEDS: ATORVASTATIN CALCIUM 20 MG TABLET 40 MG PO (20:46)
[2025-08-09] VITALS: BP 99/67; PULSE 72; PULSE 89; RESP 17; TEMP 36.2; O2SAT 95
[2025-08-09 04:00] VITALS: BP 130/76; PULSE 68; PULSE 90; RESP 16; TEMP 36.2; O2SAT 97
[2025-08-09 05:36] VITALS: BP 130/76; PULSE 83
[2025-08-09] MEDS: FUROSEMIDE INJ 10 MG/ML 4ML VIAL 40 MG IVP (05:36)
[2025-08-09] MEDS: AMIODARONE 360 MG IVPB 360 MG/200 ML BAG 16.667 MG IV (05:36)
[2025-08-09 06:17] LABS: Basophils # (Auto) 0.1 Thou/mm3 (0.0-0.2); Basophils % (Auto) 1 % (0-2.5); Eosinophils # (Auto) 2.1 Thou/mm3 (0.0-0.5); Eosinophils % (Auto) 24 % (0-10); Hematocrit 44.2 % (41.0-53.0); Hemoglobin 14.2 g/dL (13.5-16.0); Immature Granulocytes Auto 0.01 Thou/mm3 (0.00-0.00); Lymphocytes # (Auto) 1.9 Thou/mm3 (1.0-4.8); Lymphocytes % (Auto) 21 % (10-50); Mean Corpuscular HGB Conc 32.1 g/dl (31.0-37.0); Mean Corpuscular Hemoglobin 27.3 pg (25.0-35.0); Mean Corpuscular Volume 85 fL (80-100); Monocytes # (Auto) 0.8 Thou/mm3 (0.0-0.8); Monocytes % (Auto) 9 % (0-12); Neutrophils # (Auto) 4.0 Thou/mm3 (1.8-7.7); Neutrophils % (Auto) 45 % (37-80); Nucleated Red Blood Cell # 0.00 Thou/mm3 (0.00-0.00); Nucleated Red Blood Cell % 0 /100 WBC (0); Platelet Count 212 Thou/mm3 (140-440); RDW Standard Deviation 40.8 fL (35.1-43.9); Red Blood Count 5.20 Miln/mm3 (4.50-5.90); White Blood Count 8.8 Thou/mm3 (3.8-10.6)
[2025-08-09 06:26] LABS: Alanine Aminotransferase 60 U/L (10-49); Albumin, Serum 3.9 gm/dL (3.5-5.0); Albumin/Globulin Ratio 1.6 (1.2-2.2); Alkaline Phosphatase 59 U/L (46-116); Anion Gap 12 (7-16); Aspartate Amino Transferase 22 U/L (0-34); BUN/Creatinine Ratio 21 Ratio (12-20); Bilirubin,Total 0.2 mg/dL (0.3-1.2); Blood Urea Nitrogen 23 mg/dL (9-23); Calcium 9.6 mg/dL (8.3-10.6); Calcium (Corrected) 9.7 mg/dL (8.5-10.1); Carbon Dioxide 26.2 mMol/L (20.0-31.0); Chloride 107 mMol/L (98-107); Creatinine (Component) 1.1 mg/dL (0.6-1.3); Estimated Creatinine Clearance 87.9 mL/min (>60); Globulin 2.5 gm/dL (2.3-3.5); Glucose 115 mg/dL (74-106); Magnesium 2.2 mg/dL (1.6-2.6); Osmolality,Calculated 293 (275-295); Phosphorous 4.0 mg/dL (2.4-5.1); Potassium 4.4 mMol/L (3.4-5.1); Sodium 145 mMol/L (136-145); Total Protein 6.4 gm/dL (5.7-8.2); eGFR > 60 See Note
[2025-08-09 08:00] VITALS: BP 132/79; PULSE 89; PULSE 90; RESP 18; TEMP 36.6; O2SAT 95
[2025-08-09] MEDS: ASPIRIN EC 81 MG TABEC PO (09:44)
[2025-08-09] MEDS: APIXABAN 2.5 MG TABLET 5 MG PO (09:44)
[2025-08-09 09:45] VITALS: BP 118/82; PULSE 114
[2025-08-09] MEDS: METOPROLOL SUCCINATE XL 25 MG TABCR PO (09:45)
--- NOTE | 2025-08-09 10:57 | EKG_ITS ---
[facility] Test Date: 2025-08-09 Pat Name: BRIGITTE MICHELE Department: Room: S364A Gender: Male [employer] Worker: IZABEL : 1970 Requested By: Misael Hi Order Number: [id number] Reading MD: Misael Hi Measurements Intervals [place] Rate: 84 P: HI: QRS: -21 QRSD: 111 T: -89 QT: 396 QTc: 470 Interpretive Statements ATRIAL FIBRILLATION BORDERLINE LEFT AXIS DEVIATION MODERATE INTRAVENTRICULAR CONDUCTION DELAY ST DEVIATION AND MODERATE T-WAVE ABNORMALITY, CONSIDER LATERAL ISCHEMIA Compared to ECG 08/06/2025 07:55:52 Intraventricular conduction delay now present Possible ischemia now present T-wave abnormality still present /store/S0/[id number]
[2025-08-09 12:00] VITALS: BP 118/86; PULSE 85; PULSE 88; RESP 18; TEMP 36.5; O2SAT 97
--- NOTE | 2025-08-09 13:49 | ESDS_ITS ---
<Statement entered by Humberto Cox MD - 08/09/25 14:36> I discussed and supervised with the internal controls analyst physician who took care of this patient. I personally saw and examined the patient. I agree with most of the assessment and plan. Disclaimer: Despite multiple revisions, due to the dictation software being used, the document bellow may not be free of grammatical errors including phonetic/typographic errors. However, this does not deter from our commitment to providing health care in the patient's best interest in mind. Plan of care discussed with attending Physician Dr. Kolton Cox MD PGY-3 Planned Discharge Date 08/09/25 DS: Providers Provider Date of admission: 08/06/25 11:09 Primary care physician: Shaan Lloyd MD Admitting Provider: Kurtis Plaza MD Attending Provider on Admission: Kurtis Plaza MD Consults: 08/06/25 11:09 Consult to Cardiology Stat Comment: Consulting Provider: Sudhir Hollingsworth Attending Provider on DC: Kurtis Plaza MD Discharging Provider: Misael Hi MD DS: Diagnosis Problem List Completed Was Problem List Reviewed/Reconciled?: Yes Hospital Course Hospital Course Hospital course: Summary: Patient is a 54-year-old M with no past medical history who was admitted on 08/06/25 with a chief complaint of chest pain and shortness of breath and admitted for new onset A-Fib w/ RVR. Hospital: During patient's hospital course, he was treated with diltiazem IV, aspirin, heparin gtt (later transitioned to Eliquis), and metoprolol succinate for his presumed acute coronary syndrome as well as new-onset A-Fib. He was also diuresed with Lasix IV and put on fluid restriction and low-sodium diet for management of his acute decompensated heart failure. Echocardiogram performed t his admission revealed new onset right and left sided systolic and diastolic heart failure with reduced EF of 15-20%. He was also started on amiodarone gtt after he had episodes of non-sustained V-Tach which was then transitioned to amiodarone PO upon discharge (along with the addition of Entresto). Patient was discharged with instructions to follow-up with his electric organ assembler and checker, Dr. Hollingsworth, on 08/13/25 for further management of his cardiac conditions including amiodarone PO down-titration and GDMT. Patient is safe to discharge. Further discharge instructions below. Discharge Recommendations: -Follow up with your electric organ assembler and checker, Dr. Hollingsworth, on 08/13/25 -Follow up with your PCP within 1 week of discharge -We have prescribed new medications this visit; please take the following as instructed: 1. Please take amiodarone 200 mg by mouth twice per day 2. Please take apixaban 5 mg by mouth twice per day 3. Please take aspirin 81 mg by mouth once per day 4. Please take atorvastatin [Lipitor] 40 mg by mouth once every night 5. Please take bumetanide 2 mg by mouth once per day 6. Please take metoprolol succinate 25 mg by mouth once per day 7. Please take sacubitril-valsartan [Entresto] 24-26 mg by mouth twice per day -Please refrain from alcohol and methamphetamine use -Return to the ED or call EMS if symptoms return and/or worsen. Hospital Diagnoses: #New onset atrial fibrillation with rapid ventricular response, now rate- controlled #Acute decompensated heart failure #New onset right and left sided systolic and diastolic heart failure with reduced ejection fraction, EF 15 to 20% #Dilated cardiomyopathy #Moderate vascular congestion with small left pleural effusion #Non-sustained V tac #Cardiac chest pain, resolved #Dyslipidemia #Transaminitis #Osteoarthritis Patient's care plan was discussed with my attending, Dr. Plaza, and senior resident, Dr. Cox. Misael Hi, DO Internal Medicine, PGY-1 Time Spent with Patient Time attestation: Total time spent providing and/or coordinating discharge services: Time spent: Greater than 30 minutes Exam Vital Signs Temp Pulse Resp BP Pulse Ox O2 Del Method 97.7 F 85 18 118/86 H 97 Room Air 08/09/25 12:00 08/09/25 12:00 08/09/25 12:00 08/09/25 12:00 08/09/25 12:00 08/09/25 12:00 Narrative Exam General: No acute distress; A&Ox3 Skin: Warm, dry, intact, no obvious rash. HENT: Teeth missing (1 year); NCAT, EOMI/PERRL, not icteric. External ears normal. No rhinorrhea. Moist mucous membranes Cardiovascular: Regular rate and rhythm, no murmur, +S1/S2. Respiratory: Lungs CTAB GI: Soft, nontender, non-distended. No guarding or rebound tenderness. : No suprapubic tenderness. No flank tenderness bilaterally. Extremities: no edema, no cyanosis, no clubbing. Extremity pulses present Neuro: Grossly nonfocal. Moving all 4 extremities. CN not formally tested but appear grossly intact. Psychiatric: Cooperative, appropriate affect. Discharge Plan Plan Patient Disposition: HOME (Self Care) Patient condition on transfer: Benefits outweigh risks Care Plan Goals: Discharge Recommendations: -Follow up with your electric organ assembler and checker, Dr. Hollingsworth, on 08/13/25 -Follow up with your PCP within 1 week of discharge -We have prescribed new medications this visit; please take the following as instructed: 1. Please take amiodarone 200 mg by mouth twice per day 2. Please take apixaban 5 mg by mouth twice per day 3. Please take aspirin 81 mg by mouth once per day 4. Please take atorvastatin [Lipitor] 40 mg by mouth once every night 5. Please take bumetanide 2 mg by mouth once per day 6. Please take metoprolol succinate 25 mg by mouth once per day 7. Please take sacubitril-valsartan [Entresto] 24-26 mg by mouth twice per day -Please refrain from alcohol and methamphetamine use -Return to the ED or call EMS if symptoms return and/or worsen. Hospital Diagnoses: #New onset atrial fibrillation with rapid ventricular response, now rate-co ntrolled #Acute decompensated heart failure #New onset right and left sided systolic and diastolic heart failure with reduced ejection fraction, EF 15 to 20% #Dilated cardiomyopathy #Moderate vascular congestion with small left pleural effusion #Non-sustained V tac #Cardiac chest pain, resolved #Dyslipidemia #Transaminitis #Osteoarthritis Prescriptions/Referrals Prescriptions/Med Rec: New aspirin 81 mg Tablet,Delayed Release (Dr/Ec) 81 mg PO QDAY 14 Days Qty: 14 0RF bumetanide 2 mg tablet 2 mg PO QDAY 14 Days Qty: 14 0RF atorvastatin [Lipitor] 40 mg tablet 40 mg PO QPM 14 Days Qty: 14 0RF metoprolol succinate 25 mg Tablet Extended Release 24 Hr 25 mg PO QDAY 14 Days Qty: 14 0RF sacubitril-valsartan 24-26 mg Tablet 1 tab PO BID 14 Days Qty: 28 0RF apixaban 5 mg tablet 5 mg PO BID 14 Days Qty: 28 0RF amiodarone 200 mg tablet 200 mg PO BID 14 Days Qty: 28 0RF Referrals: Sudhir Hollingsworth MD [Physician, Cardiology] Shaan Lloyd MD [Primary Care Provider, Family Practice] Patient/Caregiver Discharge Instructions Discharge Activity: activity as tolerated Education Materials: AFL/Afib, Stroke Prevent Live W Atrial Fib, Understanding Atrial Fibrillation Print Language: Chinese Stand Alone Forms: Anneliese Award Info., Patient Portal Info Letter Discharge Order Discharge Orders: Discharge (Routine); Ordered 08/09/25 Ordered By: Chava Perkins Quality Discharge Quality Measures VTE prophylaxis Attestestation MD Attestation I have examined the patient, reviewed labs and imaging findings, discussed the case with the resident(s), and reviewed entered orders. I agree with the plan of care as outlined in this note. Time Spent: [address] Mela MD
--- NOTE | 2025-08-09 19:55 | PD.RESPRO ---
Documentation for date of: 08/09/25 Subjective Subjective Interval history: History of present illness: Mr. Deleon is a 54-year-old male with past medical history of osteoarthritis and remote history of methamphetamine use who presented to [facility] emergency department with a chief complaint of chest pain and shortness of breath. Patient reported that his symptoms started last night, retrosternal chest pain 9/10 radiating to the left and in the epigastric region associated with nausea, denies any vomiting/diaphoresis. Patient reported difficulty sleeping due to the chest pain also endorsed palpitations and difficulty breathing describes it as a choking sensation. Patient has not had any similar episodes in the past. Patient denies any past medical history of hypertension hyperlipidemia, Endorses history of methamphetamine use in the past, history of smoking and alcohol use around 2-3 beers once in a while, Patient is overweight, BMI 30.7 and has family history of heart disease reports in father and brother. Denies any history of hypertension, hyperlipidemia, diabetes mellitus, thyroid disorder. ED course: On presentation to ED blood pressure 138/102, heart rate 108, respirate rate 16, temp 98.1, O2 sat 95 on room air on presentation. Labs on presentation show WBC 8.7, hemoglobin 13.9, platelet count 192. Eosinophilia 16% noted. Coags INR 1.1, APTT 25.8, PT 11.5. CMP shows sodium 144, potassium 4.4, chloride 108, anion gap 10, BUN 19, creatinine 1.2, GFR greater than 60, A1c 5.9, magnesium 1.8, calcium 9.3, AST 52, ALT 97, bilirubin 0.6, troponin negative at 0.021 and repeat troponin negative at 0.20, BNP 451, albumin 4.1, triglyceride 89, cholesterol 173, LDL 116, HDL 39, TSH 1.02, free T4 1.33. Urinalysis shows 6 RBC, protein 1+ urine toxicology screen negative. EKG obtained in ER shows atrial fibrillation with rapid ventricular response rate 150, chest x-ray shows early heart failure with mild vascular congestion, septal edema with small left pleural effusion. Patient was given diltiazem 20 mg IV x 1, 1 L LR bolus and Lasix 40 mg x 1 in ED. PMH: Positive for osteoarthritis, methamphetamine use PSHx: Denies Allergies: Penicillin Social history: -Smoking: Positive smoking in the past, 20 pack years -Alcohol Use: Occasional alcohol use, 2-3 beer once in a while -Illicit Drug Use: History of methamphetamine use in the past -Occupation: Works at [email or web address] -Martial Status: Lives at [email or web address] with Family History: Positive family history for heart disease in father and brother 08/07/2025: Patient seen examined at bedside, on IV diuresis, tolerating well. Iron panel reviewed IV iron 34, was given IV iron. Heart rate is well-controlled on metoprolol succinate 50 mg. Transition to Eliquis. Potassium and magnesium was repleted. Continue atorvastatin 40 mg and aspirin daily 08/08/2025: No Overnight events. Labs reviewed and patient examined at the bedside. Patient still has A fib with RVR. Noted to have 10 beats of VT overnight. BP was 113/83 with HR 140. Pt was on metoprolol 50mg po qd. Will add Amiodarone drip. In the morning, change to amidarone 200mg po bid. Then decrease to once a day for 1 month. Discontinue heparin drip and change to eliquis po. Decrease metoprolol to 25 mg po qd. Consider adding sacubitril-valsartan in morning for GDMT. Eliquis 5mg po bid, Aspirin 81mg po qd, IV furosemide 40mg bid, and Atorvastatin 40mg po hs. Will continue to monitor. 08/09/2025: No Overnight events. Labs reviewed and patient examined at the bedside. Continue Eliquis 5mg po bid and Metoprolol 25mg po qd. Aspirin 81mg po qd. Change amiodarone drip to Amiodarone 200mg po bid. and add entresto 24-26mg po bid. Patient was getting IV furosemide 40mg bid. Discharge patient with Bumex 2mg po bid. Exam Vital Signs Temp Pulse Resp BP Pulse Ox O2 Del Method 97.7 F 85 18 118/86 H 97 Room Air 08/09/25 12:00 08/09/25 12:00 08/09/25 12:00 08/09/25 12:00 08/09/25 12:00 08/09/25 12:00 Narrative Exam General: Awake and in no acute distress. Conversational and non-toxic appearing. HEENT: Normocephalic, atraumatic, mucous membranes moist. Heart: Irregularly irregular, no murmurs. Lungs: Some bibasilar crackles Abdomen: Soft, nondistended, nontender, positive bowel sounds. ?No guarding or rebound tenderness. Neurologic: Alert and oriented x3, no gross neurological deficit, and patient able to move all 4 extremities. Extremities: Trace bilateral lower extremity edema Skin: No rash or ecchymoses Objective Labs 08/09/25 04:46 08/09/25 04:46 Labs: Laboratory Results - last 24 hr 08/09/25 04:46 WBC 8.8 RBC 5.20 Hgb 14.2 Hct 44.2 MCV 85 MCH 27.3 MCHC 32.1 RDW Std Deviation 40.8 Plt Count 212 Neut % (Auto) 45 Lymph % (Auto) 21 [place] % (Auto) 9 Eos % (Auto) 24 H Baso % (Auto) 1 Neut # (Auto) 4.0 Lymph # (Auto) 1.9 [place] # (Auto) 0.8 Eos # (Auto) 2.1 H Baso # (Auto) 0.1 Immature Gran # (Auto) 0.01 H Absolute Nucleated RBC 0.00 Immature Gran % 0 Nucleated RBC % 0 Sodium 145 Potassium 4.4 D Chloride 107 Carbon Dioxide 26.2 Anion Gap 12 BUN 23 Creatinine 1.1 Estim Creat Clear Calc 87.9 eGFR > 60 BUN/Creatinine Ratio 21 H Glucose 115 H Calculated Osmolality 293 Calcium 9.6 Corrected Calcium 9.7 Phosphorus 4.0 Magnesium 2.2 Total Bilirubin 0.2 L AST 22 ALT 60 H Alkaline Phosphatase 59 Total Protein 6.4 Albumin 3.9 Globulin 2.5 Albumin/Globulin Ratio 1.6 Quality Measures Quality Measures VTE prophylaxis Assessment & Plan Plan Mr. Deleon is a 54-year-old male with past medical history of osteoarthritis and remote history of methamphetamine use who presented to [facility] emergency department with a chief complaint of chest pain and shortness of breath. Patient admitted for new onset atrial fibrillation RVR, monitoring for cardiac chest pain and new onset heart failure. #New onset atrial fibrillation with rapid ventricular response Patient presented with new onset chest pain which started overnight, EKG on presentation shows A-fib RVR, rate 150. Patient also endorsed palpitations and some shortness of breath. Patient was given diltiazem 20 mg IV x 1, given metoprolol succinate 50 mg p.o. x 1. [id number] score 2 points, anticoagulation recommended HAS-BLED score 1 point, risk of 1.02 bleeds per 100 patient years Recommendations: -Continue Metoprolol 25mg po qd. -Discontinue heparin drip and transition to Eliquis 5mg po bid when no contraindications -Change amiodarone drip to Amiodarone 200mg po bid. -Keep potassium greater than 4 and magnesium greater than 2 at all times -Continue telemetry monitoring #Acute decompensated heart failure #New onset right and left sided systolic and diastolic heart failure with reduced ejection fraction, EF 15 to 20% #Dilated cardiomyopathy #Moderate vascular congestion with small left pleural effusion Patient complaining of chest pain, shortness of breath, difficulty breathing. Trace bilateral lower extremity edema, minimal bibasilar crackles, chest x-ray shows moderate vascular congestion, small left-sided pleural effusion. Patient denies any history of heart failure. History of on and off alcohol use, reports drinking a lot in the past, continues to drink 2 3 beers occasionally, remote history of methamphetamine use. Drug screen negative for methamphetamine. BNP on presentation 451. Iron 34, TIBC 293, iron saturation 11%, iron sat iron binding 259, ferritin 182 Echocardiogram 08/06/2025 shows: 1. Dilated Cardiomyopathy. 2. Left ventricle size is mildly enlarged and systolic function is severely reduced. Estimated ejection fraction is 15-20%. There is indeterminate diastolic function. There is concentric remodeling noted. 3. Right ventricle chamber size is mildly enlarged and systolic function is mild to moderately reduced. Estimated RVSP is 33 mmHg. Mild pulmonary HTN. 4. There is mild aortic valve sclerosis. Mild MR,TR,PI and trace PI. 5. The left atrium is moderately enlarged . LA volume of 89ml. The right atrium is mildly enlarged. 6. Normal IVC with estimated RA pressure 3 mmHg. Recommendations: -Was being Diuresis with Lasix 40 mg IV twice daily -Discharge patient with Bumex 2mg po bid. - Strict intake and output, daily weight, low-sodium diet, fluid restriction 1500 cc - Continue metoprolol succinate 25 mg daily, will need to introduce GDMT post diuresis, will consider starting patient on STEVE/ARB/ARNI and spironolactone as blood pressure tolerates. - Patient will need to follow-up outpatient closely for further workup. - Advised patient to refrain from alcohol and methamphetamine use - Continue IV iron #Non-sustained V tac -On 08/08, pt had 10 beats of Vtac. This morning, patient is asymptomatic -Started on Amiodarone drip. -Mg>2, and K>4 -Continue tele monitoring. #Cardiac chest pain, resolved Patient reports history of chest pain, 9/10 radiating to the left side in the epigastric region associated with nausea, at bedside currently complains of 3/10 chest pain. Patient reported that his chest pain woke him up from sleep and he was unable to go back to sleep and was associated with palpitations and difficulty breathing. EKG on presentation shows A-fib RVR, no acute ST-T changes, T wave inversion noted in V5 V6, flattening of T waves noted lead V1?V4. Troponin on presentation 0.021, repeat troponin negative less than 0.020 Hemoglobin A1c 5.9, TSH 1.02, free T4 1.33, cholesterol 173, LDL 116, HDL 39, triglyceride 89 CAD risk factors: Dyslipidemia LDL 116, HDL 39; alcohol use and history of methamphetamine use; BMI 30.7; history of smoking, 20 pack years; family history of heart disease and father and brother Recommendations: - Continue aspirin 81 mg daily - Patient was on heparin drip due to elevated [id number] score of 2, Discontinued - Continue Eliquis 5mg po bid - Will monitor for chest pain - Continue atorvastatin 40 mg at bedtime #Dyslipidemia Cholesterol 173, LDL 116, HDL 39, triglyceride 89 - Continue atorvastatin 40 mg at bedtime #Transaminitis #Osteoarthritis -Management per Primary Hospitalist team Thank you for allowing us to participate in the care of Mr. Joey Deleon. Patient is clear to be discharged in cardiology standpoint. Assessment and plan discussed with my attending physician Dr. Darrick Poole (PGY-1) - Internal medicine resident Attending Provider Attestation/Addendum I have personally seen and examined the patient separately on the above date of service and discussed the plan of care with the resident. I reviewed the resident Dr. Keith Poole consultation progress note and agree with the resident findings and plan in the note above and have also edited the documentation to reflect my findings and plan. Sudhir Hollingsworth M.D. Interventional Cardiology
== END 2025-08-09 15:39 | disposition home or self-care (01) | DRG 194 ==
LOC: SERX 11:42 → SERHOLD 11:49 → S3NX 16:35
PROVIDERS: Nurse Practitioner Family; Student in an Organized Health Care Education/Training Program; Admitting Provider Student in an Organized Health Care Education/Training Program; Emergency Provider Family Medicine; PCP Family Medicine; Visit Provider Student in an Organized Health Care Education/Training Program
DX: I50.43 Acute on chronic combined systolic (congestive) and diastolic (congestive) heart failure (principal); I48.91 Unspecified atrial fibrillation; E66.3 Overweight; M19.90 Unspecified osteoarthritis, unspecified site; I42.0 Dilated cardiomyopathy; I27.20 Pulmonary hypertension, unspecified; I35.8 Other nonrheumatic aortic valve disorders; I20.0 Unstable angina; E87.1 Hypo-osmolality and hyponatremia; E78.5 Hyperlipidemia, unspecified; R74.01 Elevation of levels of liver transaminase levels; I47.20 Ventricular tachycardia, unspecified; D72.10 Eosinophilia, unspecified; Z87.891 Personal history of nicotine dependence; Z68.30 Body mass index [BMI] 30.0-30.9, adult; Z79.01 Long term (current) use of anticoagulants; Z79.82 Long term (current) use of aspirin; Z88.0 Allergy status to penicillin; Z79.899 Other long term (current) drug therapy
CPT/HCPCS: 36415; 71045; 80053; 80061; 80074; 80307; 81001; 82728; 83036; 83540; 83550; 83735; 83880; 84100; 84439; 84443; 84484; 85025; 85610; 85730; 93005; 93225; 93306; 96361; 96374; 99284; J0283; J1644; J1756; J1938; J2470; J3475; J3490; J7120; A9270